=== PATIENT | male | born 1945 | race Caucasian/White ===

== ENCOUNTER 2017-05-11 05:05 | Inpatient (IN) | payer MEDICARE ==
[2017-05-11] MEDS ORDERED: SODIUM CHLORIDE 0.9% 500 ML IV STA (05:38)
[2017-05-11] MEDS ORDERED: PIPERACILLIN-TAZOBACTAM 3.375 GM in DEXTROSE/WATER 1 50ML.BAG IVPB STA (05:45)
[2017-05-11] MEDS ORDERED: SODIUM CHLORIDE 0.9% 2,000 ML IV ONE (05:46)
[2017-05-11] MEDS ORDERED: LEVOFLOXACIN 750MG-D5W PMX 750 MG in DEXTROSE/WATER 1 150ML.BAG IVPB STA (05:46)
[2017-05-11 05:47] LABS: Basophils % (A) 1 %; CH 31.4; CHCM 32.9; Eosinophils # (A) 0.1 k/uL (0-0.7); Eosinophils % (A) 1 %; HCT 42.3 % (39.0-53.0); HDW 2.31; HGB 13.5 gm/dL (13.0-17.5); Luc # (Auto) 0.12; Luc % (Auto) 2; Lymphocytes # (A) 1.1 k/uL (1.0-4.8); Lymphocytes % (A) 19 %; MCH 30.7 pg (25.0-35.0); MCV 95.8 fL (80.0-100.0); Mean Platelet Volume 6.3; Monocytes # (A) 0.3 k/uL (0-1.0); Monocytes % (A) 6 %; Neutrophils # (A) 4.2 k/uL (1.3-7.7); Neutrophils % (A) 71 %; RBC 4.41 m/uL (4.30-5.90); RDW 13.1 % (11.5-15.5); WBC 5.9 k/uL (3.8-10.6); WBC (Perox) 6.14
--- NOTE | 2017-05-11 05:48 | ED ---
Dizziness HPI - General Chief Complaint: Dizziness Stated Complaint: Dizziness Time Seen by Provider: 05/11/17 05:30 Source: patient Mode of arrival: ambulatory Limitations: physical limitation (Patient is very hard of hearing) - History of Present Illness Initial Comments: This patient is 72-year-old man who complains of feeling lightheaded and dizzy. This been coming on over the course of the night and he states that he is not able to walk due to this. Patient denies headache. Patient is not having palpitations or syncope. No chest pain. MD Complaint: dizziness, difficulty walking -: days(s) Timing: gradual onset Description: off-balance, difficulty walking History of Trauma: No Severity: moderate Worsens With: movement Associated Symptoms: denies other symptoms - Related Data Home Medications Medication Instructions Recorded Confirmed Unable To Assess [Unable to Assess] 05/11/17 05/11/17 Allergies Allergy/AdvReac Type Severity Reaction Status Date / Time No Known Allergies Allergy Verified 05/11/17 05:16 Review of Systems ROS Statement: Those systems with pertinent positive or pertinent negative responses have been documented in the HPI. ROS Other: All systems not noted in ROS Statement are negative. Limitations: ROS unobtainable due to patients medical condition (Heart of hearing) Constitutional: Reports: weakness. Denies: fever, chills Respiratory: Denies: cough, dyspnea Cardiovascular: Denies: chest pain, edema Gastrointestinal: Denies: abdominal pain, vomiting Genitourinary: Denies: dysuria, hematuria Musculoskeletal: Denies: back pain Skin: Denies: rash Neurological: Reports: weakness. Denies: headache Past Medical History Past Medical History: Hypertension History of Any Multi-Drug Resistant Organisms: None Reported Past Surgical History: No Surgical Hx Reported Past Psychological History: No Psychological Hx Reported Smoking Status: Current every day smoker Past Alcohol Use History: None Reported Past Drug Use History: None Reported General Exam Limitations: no limitations General appearance: alert, cachectic Head exam: Present: atraumatic, normocephalic Eye exam: Present: EOMI, other (Left pupil irregular). Absent: scleral icterus , conjunctival injection ENT exam: Present: mucous membranes dry Neck exam: Present: normal inspection. Absent: full ROM Respiratory exam: Present: wheezes. Absent: respiratory distress, rales, rhonchi, stridor, chest wall tenderness Cardiovascular Exam: Present: regular rate, normal rhythm, normal heart sounds. Absent: systolic murmur, diastolic murmur, rubs, gallop GI/Abdominal exam: Present: soft. Absent: distended, tenderness, guarding, rebound, mass Extremities exam: Present: normal inspection, normal capillary refill. Absent: pedal edema, calf tenderness Neurological exam: Present: alert, CN II-XII intact. Absent: motor sensory deficit Skin exam: Present: warm, dry, intact, normal color. Absent: rash Course Vital Signs 05/11/17 05/11/17 05:08 06:22 Temperature 97.1 F L Pulse Rate 91 63 Respiratory 18 16 Rate Blood Pressure 188/90 162/77 O2 Sat by Pulse 97 100 Oximetry Medical Decision Making - Lab Data Result diagrams: 05/11/17 05:21 05/11/17 05:21 Lab Results 05/11/17 05/11/17 05/11/17 Range/Units 05:21 05:21 05:21 WBC 5.9 (3.8-10.6) k/uL RBC 4.41 (4.30-5.90) m/uL Hgb 13.5 (13.0-17.5) gm/dL Hct 42.3 (39.0-53.0) % MCV 95.8 (80.0-100.0) fL MCH 30.7 (25.0-35.0) pg MCHC 32.0 (31.0-37.0) g/dL RDW 13.1 (11.5-15.5) % Plt Count 408 (150-450) k/uL Neutrophils % 71 % Lymphocytes % 19 % Monocytes % 6 % Eosinophils % 1 % Basophils % 1 % Neutrophils # 4.2 (1.3-7.7) k/uL Lymphocytes # 1.1 (1.0-4.8) k/uL Monocytes # 0.3 (0-1.0) k/uL Eosinophils # 0.1 (0-0.7) k/uL Basophils # 0.0 (0-0.2) k/uL PT 12.0 (9.0-12.0) sec INR 1.2 H (<1.2) Sodium 138 (137-145) mmol/L Potassium 4.8 (3.5-5.1) mmol/L Chloride 104 (98-107) mmol/L Carbon Dioxide 25 (22-30) mmol/L Anion Gap 9 mmol/L BUN 14 (9-20) mg/dL Creatinine 0.70 (0.66-1.25) mg/dL Est GFR (MDRD) Af Amer >60 (>60 ml/min/1.73 sqM) Est GFR (MDRD) Non-Af >60 (>60 ml/min/1.73 sqM) Glucose 89 (74-99) mg/dL Plasma Lactic Acid Warren (0.7-2.0) mmol/L Calcium 9.3 (8.4-10.2) mg/dL Total Bilirubin 0.5 (0.2-1.3) mg/dL AST 21 (17-59) U/L ALT 21 (21-72) U/L Alkaline Phosphatase 72 (38-126) U/L Troponin I (0.000-0.034) ng/mL Total Protein 6.5 (6.3-8.2) g/dL Albumin 3.2 L (3.5-5.0) g/dL Urine Color Urine Appearance (Clear) Urine pH (5.0-8.0) Ur Specific [place] (1.001-1.035) Urine Protein (Negative) Urine Glucose (UA) (Negative) Urine Ketones (Negative) Urine Blood (Negative) Urine Nitrite (Negative) Urine Bilirubin (Negative) Urine Urobilinogen (<2.0) mg/dL Ur Leukocyte Esterase (Negative) 05/11/17 05/11/17 05/11/17 Range/Units 05:21 05:47 06:50 WBC (3.8-10.6) k/uL RBC (4.30-5.90) m/uL Hgb (13.0-17.5) gm/dL Hct (39.0-53.0) % MCV (80.0-100.0) fL MCH (25.0-35.0) pg MCHC (31.0-37.0) g/dL RDW (11.5-15.5) % Plt Count (150-450) k/uL Neutrophils % % Lymphocytes % % Monocytes % % Eosinophils % % Basophils % % Neutrophils # (1.3-7.7) k/uL Lymphocytes # (1.0-4.8) k/uL Monocytes # (0-1.0) k/uL Eosinophils # (0-0.7) k/uL Basophils # (0-0.2) k/uL PT (9.0-12.0) sec INR (<1.2) Sodium (137-145) mmol/L Potassium (3.5-5.1) mmol/L Chloride (98-107) mmol/L Carbon Dioxide (22-30) mmol/L Anion Gap mmol/L BUN (9-20) mg/dL Creatinine (0.66-1.25) mg/dL Est GFR (MDRD) Af Amer (>60 ml/min/1.73 sqM) Est GFR (MDRD) Non-Af (>60 ml/min/1.73 sqM) Glucose (74-99) mg/dL Plasma Lactic Acid Warren 0.8 (0.7-2.0) mmol/L Calcium (8.4-10.2) mg/dL Total Bilirubin (0.2-1.3) mg/dL AST (17-59) U/L ALT (21-72) U/L Alkaline Phosphatase (38-126) U/L Troponin I 0.047 H* (0.000-0.034) ng/mL Total Protein (6.3-8.2) g/dL Albumin (3.5-5.0) g/dL Urine Color Yellow Urine Appearance Clear (Clear) Urine pH 5.5 (5.0-8.0) Ur Specific [place] 1.019 (1.001-1.035) Urine Protein Negative (Negative) Urine Glucose (UA) Negative (Negative) Urine Ketones Negative (Negative) Urine Blood Negative (Negative) Urine Nitrite Negative (Negative) Urine Bilirubin Negative (Negative) Urine Urobilinogen 2.0 (<2.0) mg/dL Ur Leukocyte Esterase Negative (Negative) Disposition Clinical Impression: Generalized weakness, Elevated troponin I measurement Disposition: ADMITTED IP TO THIS [facility] Condition: Poor Referrals: None,Stated [Primary Care Provider] - 1-2 days
[2017-05-11 05:56] LABS: ALT 21 U/L (21-72); AST 21 U/L (17-59); Alkaline Phosphatase 72 U/L (38-126); Anion Gap 9 mmol/L; Blood Urea Nitrogen 14 mg/dL (9-20); Calcium 9.3 mg/dL (8.4-10.2); Carbon Dioxide 25 mmol/L (22-30); Chloride 104 mmol/L (98-107); Glucose 89 mg/dL (74-99); Non-African American GFR(MDRD) >60 (>60 ml/min/1.73 sqM); Potassium 4.8 mmol/L (3.5-5.1); Sodium 138 mmol/L (137-145); Total Bilirubin 0.5 mg/dL (0.2-1.3); Total Protein 6.5 g/dL (6.3-8.2)
[2017-05-11 05:57] LABS: INR 1.2 (<1.2)
--- NOTE | 2017-05-11 06:36 | XR ---
EXAMINATION TYPE: XR chest 1V portable DATE OF EXAM: 05/11/2017 COMPARISON: Chest x-ray April 30, 2009 HISTORY: History of hypertension presents with dizziness for 3 days. TECHNIQUE: Single AP portable frontal upright view of the chest is obtained. FINDINGS: There is background of chronic emphysematous change. There is is patchy right basilar opaci ty. The left lung is clear. No pleural effusion or pneumothorax is seen bilaterally. The cardiac silh ouette size is mildly enlarged currently with atherosclerotic thoracic aorta. The osseous structure s are intact. IMPRESSION: Chronic emphysematous change and mild cardiomegaly with patchy right basilar atelectasis and/or infiltrate.
--- NOTE | 2017-05-11 06:39 | CT ---
EXAMINATION TYPE: CT brain wo con DATE OF EXAM: 05/11/2017 HISTORY: Dizziness for 3 days. History of CVA/TIA. CT DLP: 1036 mGycm. Automated Exposure Control for Dose Reduction was Utilized. TECHNIQUE: CT scan of the head is performed without contrast. COMPARISON: Prior CT scan of brain April 30, 2009 FINDINGS: There is no acute intracranial hemorrhage or midline shift identified. There is diffuse v entricular and sulcal prominence consistent with diffuse age-related cerebral atrophy. There is low- attenuation in the periventricular white matter consistent with chronic small vessel ischemic change. There is persistent near complete opacification of left maxillary sinus with sclerotic thickened wal ls consistent with chronic sinus disease at this level. There is mild mucosal thickening involving le ft-sided ethmoid sinuses and inferior left frontal sinus. There is linear density superior-medial a spect of left globe redemonstrated on axial image 21, possible calcification versus foreign body unch anged from prior. Mastoid air cells show no suspicious opacification. IMPRESSION: No acute intracranial hemorrhage or midline shift. There is fairly moderate diffuse age -related cerebral atrophy and chronic small vessel ischemic change identified. Chronic paranasal sinu s disease is redemonstrated. No significant change from prior study noted.
[2017-05-11 07:01] LABS: Appearance,Urine Clear (Clear); Bilirubin,Urine Negative (Negative); Glucose,Urine (UA) Negative (Negative); Ketones,Urine Negative (Negative); Leukocyte Esterase,Urine Negative (Negative); Nitrite,Urine Negative (Negative); PH, Urine 5.5 (5.0-8.0); Protein,Urine Negative (Negative); Specific Gravity,Urine 1.019 (1.001-1.035); UA Billing (MACRO vs. MICRO) CHEM
[2017-05-11] MEDS ORDERED: NITROGLYCERIN SL TABS 0.4 MG TAB SUBLINGUAL PRN (07:03)
[2017-05-11] MEDS ORDERED: ENOXAPARIN 60 MG/0.6 ML SYRINGE SQ STA (07:03)
--- NOTE | 2017-05-11 09:05 | P.CRDCN ---
History of Present Illness Consult date: 05/11/17 Requesting physician: Michael Timmons Reason for Consult (text): Abnormal troponin Chief complaint: Dizziness and weakness History of present illness: This is a 72-year-old gentleman with history of hypertension, prior TIA and syncopal episode approximately 5 years ago, nicotine dependence, patient states that he smokes up to 3 packs of cigarettes per day, he also drinks at least 6 beers a day. He doesn't follow regularly with a doctor. Patient presented to the hospital with symptoms of dizziness and lightheadedness and inability to walk. He states that he can stand up okay, but when he needs to walk he has a hard time getting his legs to move. At those times he also complains of feeling significantly dizzy. He denies having any chest discomfort, no palpitations, no difficulty in breathing. Cardiology consultation was requested because of abnormal troponin. EKG performed on arrival shows junctional rhythm with nonspecific ST-T wave changes. CAT scan of the brain did not reveal any acute intracranial hemorrhage or midline shift. Chronic small vessel ischemic change identified. Chest x-ray reveals chronic emphysema changes and mild cardiomegaly. CBC normal. Potassium 4.8, BUN 14, creatinine 0.7. Troponin 0.047. Blood pressure on arrival 188/90 with a heart rate in the 90s, 97% on room air. At the time of my examination this morning, patient is lying flat in bed, denies any chest discomfort, no dizziness or lightheadedness. Past Medical History Past Medical History: Hypertension History of Any Multi-Drug Resistant Organisms: None Reported Past Surgical History: No Surgical Hx Reported Past Psychological History: No Psychological Hx Reported Smoking Status: Current every day smoker Past Alcohol Use History: None Reported Past Drug Use History: None Reported Medications and Allergies Home Medications Medication Instructions Recorded Confirmed Type Blood Pressure Med (Unknown) 1 tab PO DIRECTED 05/11/17 History Allergies Allergy/AdvReac Type Severity Reaction Status Date / Time No Known Allergies Allergy Verified 05/11/17 07:49 Physical Exam Vitals: Vital Signs Temp Pulse Resp BP Pulse Ox 05/11/17 07:29 97.6 F 61 20 153/74 100 05/11/17 06:22 63 16 162/77 100 05/11/17 05:08 97.1 F L 91 18 188/90 97 Intake and Output 11/05/11/17 05/11/17 22:59 06:59 14:59 Other: Weight 63.503 kg 53.1 kg Patient Weight 05/12/17 06:59 Weight 53.1 kg PHYSICAL EXAMINATION: HEENT: Head is atraumatic, normocephalic. Pupils equal, round. Neck is supple. There is no elevated jugular venous pressure. HEART EXAMINATION: Heart S1, S2 normal. No murmur or gallop heard. CHEST EXAMINATION: Lungs are clear to auscultation and precussion. No chest wall tenderness is noted on palpation or with deep breathing. ABDOMEN: Soft, nontender. Bowel sounds are heard. No organomegaly noted. EXTREMITIES: 2+ peripheral pulses with no evidence of peripheral edema and no calf tenderness noted. NEUROLOGIC patient is awake, alert and oriented -3. . Results 05/11/17 05:21 05/11/17 05:21 Cardiac Enzymes 05/11/17 05/11/17 Range/Units 05:21 05:21 AST 21 (17-59) U/L Troponin I 0.047 H* (0.000-0.034) ng/mL Coagulation 05/11/17 Range/Units 05:21 PT 12.0 (9.0-12.0) sec CBC 05/11/17 Range/Units 05:21 WBC 5.9 (3.8-10.6) k/uL RBC 4.41 (4.30-5.90) m/uL Hgb 13.5 (13.0-17.5) gm/dL Hct 42.3 (39.0-53.0) % Plt Count 408 (150-450) k/uL Comprehensive Metabolic Panel 05/11/17 Range/Units 05:21 Sodium 138 (137-145) mmol/L Potassium 4.8 (3.5-5.1) mmol/L Chloride 104 (98-107) mmol/L Carbon Dioxide 25 (22-30) mmol/L BUN 14 (9-20) mg/dL Creatinine 0.70 (0.66-1.25) mg/dL Glucose 89 (74-99) mg/dL Calcium 9.3 (8.4-10.2) mg/dL AST 21 (17-59) U/L ALT 21 (21-72) U/L Alkaline Phosphatase 72 (38-126) U/L Total Protein 6.5 (6.3-8.2) g/dL Albumin 3.2 L (3.5-5.0) g/dL Current Medications Generic Name Dose Route Start Last Admin Trade Name Pura PRN Reason Stop Dose Admin Aspirin 325 mg 05/12/17 09:00 Aspirin PO DAILY GURWINDER Nitroglycerin 0.4 mg 05/11/17 07:03 Nitrostat SUBLINGUAL Q5M PRN Chest Pain Intake and Output 05/10/17 05/11/17 05/11/17 22:59 06:59 14:59 Other: Weight 63.503 kg 53.1 kg Patient Weight 05/12/17 06:59 Weight 53.1 kg 05/11/17 05:21 05/11/17 05:21 EKG Interpretations (text) EKG shows a junctional rhythm with nonspecific ST-T wave changes Assessment and Plan Plan: Assessment and plan #1 symptoms of dizziness and lightheadedness of bilateral leg weakness. No syncopal episode. #2 abnormal troponin, patient denies having any chest discomfort, no palpitations, no shortness of breath. EKG shows a junctional rhythm with nonspecific ST-T wave changes. #3 hypertension #4 prior TIA and questionable syncopal episode approximately 5 years ago #5 nicotine dependence, patient's smokes 3 packs of cigarettes per day #6 EtOH abuse, patient rates at least 6 beers a day. Plan We will obtain 2 subsequent troponins. Echocardiogram with Doppler study were also be requested. We will check orthostatic blood pressure and heart rate every shift. Further recommendations to follow. DNP note has been reviewed, I agree with a documented findings and plan of care. Patient was seen and examined.
[2017-05-11] MEDS ORDERED: LORazepam 2 MG/ML INJ IV PRN ×3 (09:24)
[2017-05-11] MEDS ORDERED: ONDANSETRON 4 MG/2 ML VIAL IVP PRN (09:25)
[2017-05-11] MEDS ORDERED: DOCUSATE 100 MG CAP PO PRN (09:25)
[2017-05-11] MEDS ORDERED: CALCIUM CARBONATE 500 MG CHEWABLE PO PRN (09:25)
[2017-05-11] MEDS ORDERED: MELATONIN 5 MG TABLET PO PRN (09:25)
[2017-05-11] MEDS ORDERED: hydrALAZINE HCL 20 MG/ML 1 ML VIAL IM PRN (09:25)
--- NOTE | 2017-05-11 09:28 | P.HPIM ---
History of Present Illness H&P Date: 05/11/17 Chief Complaint: dizziness Patient is a 72-year-old male with a past medical history of hypertension, he has not seen a physician in 2 years, tobacco abuse, and alcohol abuse who presented to the ER with complaints of disequilibrium and inability to walk. In the ER the patient underwent an extensive evaluation. His initial vital signs showed him to be quite hypertensive with a blood pressure 180/90. His initial laboratory analysis showed a slightly elevated troponin 0.047, INR 1.2, and albumin of 3.2. Chest x-ray showed no acute process and CT of the brain demonstrated diffuse age-related cerebral atrophy with chronic small vessel ischemic changes and chronic paranasal sinus disease. Seen and examined at bedside. He states that he first noticed some disequilibrium approximately 3 days ago associated with lower extremity weakness. He states that has been getting worse over time. He states that when he stands he is dizzy and unable to move his legs. He states that his legs are not weak. He denies any feelings as though he is going to faint or pass out, he denies the room spinning. He denies any shortness of breath. He states he has felt like he has had the flu since Wednesday with nausea and runny diarrhea. He states he went to the bathroom multiple times. He denies any overt fevers or chills. He does report decreased appetite. He denies any recent weight loss. He states that he had a headache on Wednesday but it resolved spontaneously and has not recurred. He states that last night he took 3 of his blood pressure pills after not having taken them for quite some time. He reports doing this because he felt as though his blood pressure was "high". He has no other complaints currently. He admits to drinking 6 beers daily and his last drink was on Wednesday. He states that he typically will go 1-2 days without drinking and does not develop symptoms of withdrawal. He states that he was here in 2009 with a possible stroke. Daughter relates that they felt it was likely related to his drinking and not truly a stroke. She states that her daughter has reported that he has been consuming more liquor recently, patient denies this. Review of Systems General: no fever/chills, no rigors, no weight loss/weight gain, + unusual fatigue, + Decreased appetite. Eyes: no noticable visual changes, no loss of vision ENT: no rhinorrhea, no congestion, no sore throat Cardiovascular: no chest pain, no palpitations, no preyncope/syncope, no edema Pulmonary: no shortness of breath, no wheezing, no cough Abdominal: no abdominal pain, no constipation, + diarrhea, no vomiting, + nausea Genitourinary: no dysuria, no urinary frequency, no unusual discharge/odor Neuro: + disequilibrium no unusual paresthesias, no unusual paresis/paralysis, + headache Dermatologic: no unusual rashes, no unusual lesions, no unusual changes in nails Hematologic: no hemoptysis, no hematuria, no melena/hematochezia Psychiatric: no changes in mood or behaviors, no changes in sleep pattern Past Medical History Past Medical History: Hypertension Additional Past Medical History / Comment(s): Pt is a somewhat poor historian. HTN per daughter, but does not take his medications. In 2008 pt admitted to [facility] with severe sinusitis/mastoiditis, syncope, hyponatremia, elevated blood sugar and vertigo. Pt states the only medical hx he is aware of was a syncopal event. History of Any Multi-Drug Resistant Organisms: None Reported Past Surgical History: Hernia Repair Additional Past Surgical History / Comment(s): R inguinal hernia repair. Past Anesthesia/Blood Transfusion Reactions: No Reported Reaction Past Psychological History: No Psychological Hx Reported Smoking Status: Current every day smoker Past Alcohol Use History: Daily (6 beers daily, last drink Tuesday 05/08), Heavy Past Drug Use History: None Reported - Past Family History Father Family Medical History: No Reported History Mother Family Medical History: Diabetes Mellitus Additional Family Medical History / Comment(s): Brain Tumor Medications and Allergies Home Medications Medication Instructions Recorded Confirmed Type Blood Pressure Med (Unknown) 1 tab PO DIRECTED 05/11/17 History Allergies Allergy/AdvReac Type Severity Reaction Status Date / Time No Known Allergies Allergy Verified 05/11/17 07:49 Physical Exam Osteopathic Statement: *. No significant issues noted on an osteopathic structural exam other than those noted in the History and Physical/Consult. Vitals: Vital Signs Temp Pulse Pulse Resp BP BP Pulse Ox 05/11/17 08:21 97.8 F 65 18 164/80 99 05/11/17 07:29 97.6 F 61 20 153/74 100 05/11/17 06:22 63 16 162/77 100 05/11/17 05:08 97.1 F L 91 18 188/90 97 Intake and Output 05/10/17 05/11/17 05/11/17 22:59 06:59 14:59 Other: Weight 63.503 kg 53.1 kg Patient Weight 05/12/17 06:59 Weight 53.1 kg General: non toxic, no distress, appears older than stated age, Cachetic, malnourished appearing Derm: no unusual rashes/lesions all areas of ecchymoses, warm, dry Head: atraumatic, normocephalic, symmetric Eyes: EOMI, no lid lag, anicteric sclera, pupils equal round reactive to light ENT: Nose and ears atraumatic, no thrush, + pharyngeal erythema Neck: No thyromegaly, no cervical lymphadenopathy, trachea midline, supple Mouth: no lip lesion, mucus membranes dry Cardiovascular: S1S2 reg, no murmur, positive posterior tibial pulse bilateral, no edema, capillary refill less than 2 seconds Lungs: CTA bilateral, no rhonchi, no rales , no accessory muscle use Abdominal: soft, nontender to palpation, no guarding, no appreciable organomegaly, normal bowel sounds Ext: no gross muscle atrophy, muscle strength 4 out of 5 in all 4 extremities grossly, no contractures, Neuro: CN II-XI grossly intact, light touch intact all 4 extremities, finger to nose, poor [id number] Psych: Alert, oriented, appropriate affect Results CBC & Chem 7: 05/11/17 05:21 05/11/17 05:21 Labs: Abnormal Lab Results - Last 24 Hours (Table) 05/11/17 05/11/17 05/11/17 Range/Units 05:21 05:21 05:21 INR 1.2 H (<1.2) Troponin I 0.047 H* (0.000-0.034) ng/mL Albumin 3.2 L (3.5-5.0) g/dL Thrombosis Risk Factor Assmnt - DVT/VTE Prophylaxis DVT/VTE Prophylaxis: Pharmacologic Prophylaxis ordered, Mechanical Prophylaxis ordered - Choose All That Apply Any of the Below Risk Factors Present?: Yes Other Risk Factors: Yes Each Risk Factor Represents 2 Points: Age 61-74 years Other congenital or acquired thrombophilia - If yes, enter type in comment: No Thrombosis Risk Factor Assessment Total Risk Factor Score: 2 Thrombosis Risk Factor Assessment Level: Low Risk Assessment and Plan Assessment: Disequilibrium suspect Wernicke Encephalopathy vs stroke - high dose thiamine supplementation, MVI, folic acid -PT/OT/ST evaluation - ASA, statin - Neuro checks - MRI - Neuro consult - fall precuations - supportive care - carotid doppler, echo - check lipid profile - check B 12 level Elevated troponin, suspect due to HTN - Cardiology recommendations appreciated - Echo - serial troponins - ASA - full dose lovenox - check Lipid profile - statin Alcohol abuse with impending delirium tremens - thiamine, folate supplementation - CIWA protocol Hypertensive urgency - improved - norvasc and cozaar added by cardio - follow BP - prn hydralazine Tobacco abuse - cessation recommended - avoid nicotine replacement with increased troponin if able. Mild protein calorie malnutrition with cachexia - MVI - Consult dietitian Surrogate decision-maker: Daughter Antonia Guzman [phone] CODE STATUS:Full DVT prophylaxis: on dull dose lovenox Discussed with: Patient, family, cardio, nursing Anticipated discharge: 24-[address]: home vs snf A total of 65 minutes was spent on the care of this complex patient more than 50 % of the time was spent in counseling and care coordination.
--- NOTE | 2017-05-11 11:57 | ECHOF ---
Referral Reason:abn trop MEASUREMENTS -------- HEIGHT: 182.9 cm WEIGHT: 53.1 kg BP: 153/74 RVIDd: 2.6 cm (< 3.3) IVSd: 0.8 cm (0.6 - 1.1) LVIDd: 5.0 cm (3.9 - 5.3) LVPWd: 0.6 cm (0.6 - 1.1) IVSs: 1.1 cm LVIDs: 3.5 cm LVPWs: 1.2 cm LA Diam: 2.8 cm (2.7 - 3.8) LAESV Index (A-L): 15.70 ml/m Ao Diam: 3.1 cm (2.0 - 3.7) AV Cusp: 2.1 cm (1.5 - 2.6) LA Diam: 3.2 cm (2.7 - 3.8) MV EXCURSION: 21.371 mm (> 18.000) MV EF SLOPE: 103 mm/s (70 - 150) EPSS: 0.6 cm MV E Michael: 0.56 m/s MV DecT: 224 ms MV A Michael: 0.59 m/s MV E/A Ratio: 0.95 RAP: 5.00 mmHg RVSP: 8.86 mmHg FINDINGS -------- Sinus rhythm. This was a technically adequate study. Pt. has a pectus chest. LV size, wall thickness and systolic function are normal, with an EF greater than 55%. The left zach tricular size is normal. The right ventricle is normal in size. Normal LA size by volume 22+/-6 ml/m2. The right atrial size is normal. The aortic valve was not well visualized. Mild mitral regurgitation is present. No regurgitation noted There is no evidence of pulmonary hypertension. The right ventricular syst olic pressure, as measured by Doppler, is 8.86mmHg. The pulmonic valve was not well visualized. The aortic root size is normal. There is no pericardial effusion. CONCLUSIONS -------- 1. Pt. has a pectus chest. 2. LV size, wall thickness and systolic function are normal, with an EF greater than 55%. 3. The left ventricular size is normal. 4. The aortic valve was not well visualized. 5. Mild mitral regurgitation is present. 6. No regurgitation noted 7. There is no evidence of pulmonary hypertension. 8. The right ventricular systolic pressure, as measured by Doppler, is 8.86mmHg. 9. The pulmonic valve was not well visualized. 10. The aortic root size is normal. 11. There is no pericardial effusion. HEMOTHERAPIST: Soledad Herman RDCS
[2017-05-11 12:04] LABS: Creatine Kinase MB 0.6 ng/mL (0.0-2.4)
[2017-05-11 12:14] LABS: Troponin I 0.043 ng/mL (0.000-0.034)
[2017-05-11] MEDS: amLODIPine 5 MG TAB PO SCH (12:17)
[2017-05-11] MEDS: FOLIC ACID 1 MG TAB PO SCH (12:18)
[2017-05-11] MEDS: MULTIVITAMINS, THERA 1 EACH TAB PO SCH (12:18)
[2017-05-11] MEDS: THIAMINE 100 MG/ML 2 ML VIAL IVP SCH ×2 (12:19→20:38)
--- NOTE | 2017-05-11 17:38 | MR ---
EXAMINATION TYPE: MR brain wo/w con DATE OF EXAM: 05/11/2017 COMPARISON: NONE HISTORY: Dizziness, weakness TECHNIQUE: Multiplanar, multisequence images of the brain and brainstem is performed without and with IV contras t, utilizing 5 mL intravenous Gadavist . FINDINGS: There is cerebral cortical atrophy. There is no mass effect nor midline shift. There is no sign of intracranial hemorrhage. There is patchy abnormal increased signal in the periventricular whi te matter on the T2 and FLAIR images. There is conglomeration of increased signal in the centrum semi ovale bilaterally. There is mild increased signal around the occipital horns of the lateral ventricle s as well. There is no evidence of cortical infarct. Brainstem is intact. Sella turcica appears normal. There is mild thinning of the corpus callosum. I s ee no pathologic enhancement. There is fluid signal in the left maxillary sinus. There is some increa sed signal in the right mastoid sinus. IMPRESSION: Cerebral atrophy and white matter signal changes probably be related to chronic small ves hannah ischemia. Demyelinating disease is in the differential diagnosis. No evidence of cortical infarct . Left maxillary and right mastoid sinusitis.
--- NOTE | 2017-05-11 17:47 | US ---
EXAMINATION TYPE: US carotid duplex BILAT DATE OF EXAM: 05/11/2017 COMPARISON: NONE CLINICAL HISTORY: Stenosis. EXAM MEASUREMENTS: RIGHT: Peak Systolic Velocity (PSV) cm/sec ----- Right CCA: 65.3 ----- Right ICA: 49.9 ----- Right ECA: 52.0 ICA/CCA ratio: 0.8 RIGHT: End Diastole cm/sec ----- Right CCA: 8.6 ----- Right ICA: 12.6 ----- Right ECA: 5.8 LEFT: Peak Systolic Velocity (PSV) cm/sec ----- Left CCA: 78.4 ----- Left ICA: 56.4 ----- Left ECA: 79.4 ICA/CCA ratio: 0.7 LEFT: End Diastole cm/sec ----- Left CCA: 13.7 ----- Left ICA: 14.1 ----- Left ECA: 0.0 VERTEBRALS (direction of flow): Right Vertebral: Antegrade Left Vertebral: Antegrade Rhythm: Normal Severe plaque, no significant stenosis seen. Grayscale, color Doppler, spectral Doppler imaging performed of the carotid arteries. Atheromatous ch anges in the carotid bulbs show shadowing compatible with calcifications. IMPRESSION: No hemodynamic significant stenosis of the proximal internal carotid arteries Doppler cr iteria, an indirect measurement of carotid stenosis
[2017-05-11 18:28] LABS: Creatine Kinase MB 0.5 ng/mL (0.0-2.4); Troponin I 0.03 ng/mL (0.000-0.034)
[2017-05-11] MEDS: ATORVASTATIN 20 MG TAB PO SCH (20:37)
[2017-05-11] MEDS: FAMOTIDINE 20 MG TAB PO SCH (20:37)
[2017-05-11] MEDS: ENOXAPARIN 60 MG/0.6 ML SYRINGE SQ SCH (20:38)
[2017-05-12 06:09] LABS: CH 31.3; CHCM 32.2; HCT 41.5 % (39.0-53.0); HDW 2.25; HGB 12.9 gm/dL (13.0-17.5); MCH 30.4 pg (25.0-35.0); MCHC 31.1 g/dL (31.0-37.0); MCV 97.7 fL (80.0-100.0); Mean Platelet Volume 7.1; RBC 4.25 m/uL (4.30-5.90); RDW 12.9 % (11.5-15.5); WBC 6.5 k/uL (3.8-10.6)
[2017-05-12 06:19] LABS: ALT 22 U/L (21-72); AST 21 U/L (17-59); Alkaline Phosphatase 72 U/L (38-126); Anion Gap 8 mmol/L; Blood Urea Nitrogen 15 mg/dL (9-20); Calcium 9.6 mg/dL (8.4-10.2); Carbon Dioxide 27 mmol/L (22-30); Chloride 102 mmol/L (98-107); Cholesterol 122 mg/dL (<200); Glucose 73 mg/dL (74-99); HDL Cholesterol 51 mg/dL (40-60); Non-African American GFR(MDRD) >60 (>60 ml/min/1.73 sqM); Potassium 4.5 mmol/L (3.5-5.1); Sodium 137 mmol/L (137-145); Total Bilirubin 0.5 mg/dL (0.2-1.3); Total Protein 6.8 g/dL (6.3-8.2)
--- NOTE | 2017-05-12 08:01 | P.PN ---
Subjective Progress Note Date: 05/12/17 Principal diagnosis: weakness and dizziness This 72-year-old male with history of alcohol abuse was admitted with symptoms of weakness. Patient says that symptoms had started on Wednesday. Most prominent for symptom for him is dizziness and instability when he stands up. Denies any headaches. Denies any focal weakness. He is on steady when he stands up. Today patient is status he still feels dizzy when he sits up in bed. She has to lay down and denies any chest pains or palpitations no headaches Objective - Vital Signs Vital signs: Vital Signs Temp 98.8 F 05/12/17 06:35 Pulse 65 05/12/17 06:35 Resp 17 05/12/17 06:35 BP 140/65 05/12/17 06:35 Pulse Ox 95 05/12/17 06:35 Intake & Output 05/11/17 05/12/17 05/12/17 18:59 06:59 18:59 Intake Total 1200 200 Output Total 350 1200 200 Balance 850 -1000 -200 Weight 53.1 kg 53.6 kg Intake: Oral 1200 200 Output: Urine 350 1200 200 Other: Voiding Method Urinal # Voids 1 1 1 - Constitutional General appearance: Present: disheveled, no acute distress - EENT Eyes: Present: EOMI, PERRLA - Respiratory Respiratory: bilateral: CTA, negative: rales, wheezing - Cardiovascular Rhythm: regular Heart sounds: normal: S1, S2 - Gastrointestinal General gastrointestinal: Present: normal bowel sounds, soft. Absent: tenderness - Labs CBC & Chem 7: 05/12/17 05:23 05/12/17 05:23 Labs: Abnormal Lab Results - Last 24 Hours (Table) 05/11/17 05/11/17 05/12/17 Range/Units 11: 17:33 05:23 RBC (4.30-5.90) m/uL Hgb (13.0-17.5) gm/dL Glucose 73 L (74-99) mg/dL Total Creatine Kinase 33 L 32 L (55-170) U/L Troponin I 0.043 H* (0.000-0.034) ng/mL Albumin 3.2 L (3.5-5.0) g/dL 05/12/17 Range/Units 05:23 RBC 4.25 L (4.30-5.90) m/uL Hgb 12.9 L (13.0-17.5) gm/dL Glucose (74-99) mg/dL Total Creatine Kinase (55-170) U/L Troponin I (0.000-0.034) ng/mL Albumin (3.5-5.0) g/dL Assessment and Plan (1) Gait abnormality Narrative/Plan: will order MRI neuro consult Current Visit: Yes Status: Acute Code(s): R26.9 - UNSPECIFIED ABNORMALITIES OF GAIT AND MOBILITY SNOMED Code(s): 72030326 (2) Dizziness Narrative/Plan: will order MRI neuro to eval Current Visit: Yes Status: Acute Code(s): R42 - DIZZINESS AND GIDDINESS SNOMED Code(s): 857082519 (3) Alcohol abuse Narrative/Plan: watch for dt symptoms Current Visit: Yes Status: Acute Code(s): F10.10 - ALCOHOL ABUSE, UNCOMPLICATED SNOMED Code(s): 53551517 (4) Hypertensive urgency Narrative/Plan: on losartan better controlled Current Visit: Yes Status: Acute Code(s): I16.0 - HYPERTENSIVE URGENCY SNOMED Code(s): 603228639 (5) Tobacco abuse Current Visit: Yes Status: Acute Code(s): Z72.0 - TOBACCO USE SNOMED Code( s): 815681166 (6) Protein calorie malnutrition Current Visit: Yes Status: Acute Code(s): E46 - UNSPECIFIED PROTEIN-CALORIE MALNUTRITION SNOMED Code(s): 706879297 (7) Elevated troponin I measurement Narrative/Plan: echo pending cardiology following Current Visit: Yes Status: Acute Code(s): R74.8 - ABNORMAL LEVELS OF OTHER SERUM ENZYMES SNOMED Code(s): 655007697
[2017-05-12] MEDS: FOLIC ACID 1 MG TAB PO SCH (08:14)
[2017-05-12] MEDS: FAMOTIDINE 20 MG TAB PO SCH ×2 (08:14→20:03)
[2017-05-12] MEDS: ASPIRIN 81 MG PO SCH (08:14)
[2017-05-12] MEDS: amLODIPine 5 MG TAB PO SCH (08:14)
[2017-05-12] MEDS: MULTIVITAMINS, THERA 1 EACH TAB PO SCH (08:15)
[2017-05-12] MEDS: THIAMINE 100 MG/ML 2 ML VIAL IVP SCH ×2 (08:16→20:03)
[2017-05-12] MEDS: ENOXAPARIN 60 MG/0.6 ML SYRINGE SQ SCH ×2 (08:16→20:04)
[2017-05-12] MEDS ORDERED: ASPIRIN 325 MG TAB PO SCH (09:00)
[2017-05-12] MEDS ORDERED: LOSARTAN 25 MG TAB PO SCH (09:00)
--- NOTE | 2017-05-12 11:03 | P.PN ---
Subjective Progress Note Date: 05/12/17 Principal diagnosis: Dizziness and weakness This is a 72-year-old gentleman with history of hypertension, prior TIA and syncopal episode approximately 5 years ago, nicotine dependence, patient states that he smokes up to 3 packs of cigarettes per day, he also drinks at least 6 beers a day. He doesn't follow regularly with a doctor. Patient presented to the hospital with symptoms of dizziness and lightheadedness and inability to walk. He states that he can stand up okay, but when he needs to walk he has a hard time getting his legs to move. At those times he also complains of feeling significantly dizzy. He denies having any chest discomfort, no palpitations, no difficulty in breathing. Cardiology consultation was requested because of abnormal troponin. EKG performed on arrival shows junctional rhythm with nonspecific ST-T wave changes. CAT scan of the brain did not reveal any acute intracranial hemorrhage or midline shift. Chronic small vessel ischemic change identified. Chest x-ray reveals chronic emphysema changes and mild cardiomegaly. CBC normal. Potassium 4.8, BUN 14, creatinine 0.7. Troponin 0.047. Blood pressure on arrival 188/90 with a heart rate in the 90s, 97% on room air. At the time of my examination this morning, patient is lying flat in bed, denies any chest discomfort, no dizziness or lightheadedness. 05/12/2017 seen and examined this morning, denies any dizziness or lightheadedness today. Echocardiogram with Doppler study was performed which revealed an ejection fraction of greater than 55%. Carotid Doppler study negative for any significant stenosis. Blood pressure 140/60 with heart rate in the 60s. We will discontinue the Cozaar and add a beta lori 12-1/2 mg by mouth twice a day, we also recommend a nutrition consult for the patient. Objective - Vital Signs Vital signs: Vital Signs Temp 97.7 F 05/12/17 08:20 Pulse 80 05/12/17 08:20 Resp 17 05/12/17 08:20 BP 112/53 05/12/17 08:20 Pulse Ox 97 05/12/17 08:20 Intake & Output 05/11/17 05/12/17 05/12/17 18:59 06:59 18:59 Intake Total 1200 200 240 Output Total 350 1200 200 Balance 850 -1000 40 Weight 53.1 kg 53.6 kg Intake: Oral 1200 200 240 Output: Urine 350 1200 200 Other: Voiding Method Urinal Urinal # Voids 1 1 1 - Exam PHYSICAL EXAMINATION: HEENT: Head is atraumatic, normocephalic. Pupils equal, round. Neck is supple. There is no elevated jugular venous pressure. HEART EXAMINATION: Heart S1, S2 normal. No murmur or gallop heard. CHEST EXAMINATION: Lungs are clear to auscultation and precussion. No chest wall tenderness is noted on palpation or with deep breathing. ABDOMEN: Soft, nontender. Bowel sounds are heard. No organomegaly noted. EXTREMITIES: 2+ peripheral pulses with no evidence of peripheral edema and no calf tenderness noted. NEUROLOGIC patient is awake, alert and oriented -3. . - Labs CBC & Chem 7: 05/12/17 05:23 05/12/17 05:23 Labs: Abnormal Lab Results - Last 24 Hours (Table) 05/11/17 05/11/17 05/12/17 Range/Units 11:09 17:33 05:23 RBC (4.30-5.90) m/uL Hgb (13.0-17.5) gm/dL Glucose 73 L (74-99) mg/dL Total Creatine Kinase 33 L 32 L (55-170) U/L Troponin I 0.043 H* (0.000-0.034) ng/mL Albumin 3.2 L (3.5-5.0) g/dL 05/12/17 Range/Units 05:23 RBC 4.25 L (4.30-5.90) m/uL Hgb 12.9 L (13.0-17.5) gm/dL Glucose (74-99) mg/dL Total Creatine Kinase (55-170) U/L Troponin I (0.000-0.034) ng/mL Albumin (3.5-5.0) g/dL Assessment and Plan Plan: Assessment and plan #1 symptoms of dizziness and lightheadedness of bilateral leg weakness. No syncopal episode. #2 abnormal troponin, patient denies having any chest discomfort, no palpitations, no shortness of breath. EKG shows a junctional rhythm with nonspecific ST-T wave changes. #3 hypertension #4 prior TIA and questionable syncopal episode approximately 5 years ago #5 nicotine dependence, patient's smokes 3 packs of cigarettes per day #6 EtOH abuse, patient rates at least 6 beers a day. Plan Cardiac gram with Doppler study was performed which revealed a normal left ventricular systolic function. No orthostasis was documented. No significant bradycardia or tachyarrhythmias on the monitor. We will discontinue the Cozaar and start the patient on Lopressor 12/2 mg daily. From cardiology's perspective he may be able to be discharged home and follow-up with his primary care doctor as an outpatient. DNP note has been reviewed, I agree with a documented findings and plan of care. Patient was seen and examined.
[2017-05-12] MEDS: METOPROLOL TARTRATE 12.5 MG TAB PO SCH (12:04)
[2017-05-12] MEDS: ATORVASTATIN 20 MG TAB PO SCH (20:04)
--- NOTE | 2017-05-12 22:21 | P.CNNES ---
History of Present Illness Consult date: 05/12/17 Reason for Consult: Patient being evaluated for dizziness and gait disorder. History of Present Illness: This patient is a 72-year-old right-handed white male was brought into the emergency room on 05/11/2017 for evaluation of dizziness and generalized weakness. Patient was having great difficulty walking and standing up at home. Currently he states the symptoms began suddenly on Wednesday of this past week. He was unable to walk due to the symptoms. He complained of a true dizziness in which he felt the room was spinning. He states that he was having difficulty getting his legs to move. He was initially evaluated in the ER and had a computed tomography scan of the brain which failed to reveal any evidence of acute intracranial hemorrhage or stroke. He was subtotally admitted to the hospital. He underwent an MRI of the brain on 05/11/2017 which revealed cerebral atrophy and chronic white matter ischemic changes. Radiologist reported no evidence of acute cortical infarct. The patient states that he is still feeling weak and still complains of mild dizziness. He is a very poor historian and is unable to give an accurate history of his current condition. He is also very hard of hearing. He states that he has no previous history of stroke. Patient is now being evaluated for abnormal troponin levels. Cardiology has been consulted. He has a long-standing history of severe alcohol abuse. He was started on a CIWA protocol on initial evaluation and admission to the hospital given his chronic alcohol is him. 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 He states he has not had any recent falls but does notice significant weakness. Patient should be counseled on alcohol rehabilitation. He is a very poor historian and MRI of the brain does reveal evidence of moderate to severe cortical ischemia. We did review the actual MRI films today and there does appear to be a acute left pontine infarct. We will collaborate this tomorrow with radiology to reevaluate this diffusion weighted imaging study of the brain. At this time the patient's neurological findings also suggest possibility of brainstem stroke. 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 This appears to be sudden in onset likely occurring this past Wednesday. We have recommended the patient undergo a complete stroke evaluation. He should be maintained on 1 aspirin daily for secondary stroke prevention. Would recommend reevaluation by physical therapy for possible need for inpatient rehab. This patient also has evidence suggesting possibility of peripheral neuropathy secondary to alcohol abuse in the lower extremities. This can be further evaluated in the outpatient neurology clinic within EMG study. His overall prognosis at this time remains very guarded. Neurology is now been consulted for further evaluation and recommendations. Review of Systems Constitutional: Denies chills, Denies fever Eyes: denies blurred vision, denies pain Ears, nose, mouth and throat: Denies headache, Denies sore throat Cardiovascular: Denies chest pain, Denies shortness of breath Respiratory: Denies cough Gastrointestinal: Denies abdominal pain, Denies diarrhea, Denies nausea, Denies vomiting Musculoskeletal: Denies myalgias Integumentary: Denies pruritus, Denies rash Neurological: Reports change in mentation, Reports confusion, Reports double vision, Reports lack of coordination, Reports paresthesias, Reports visual changes (There is a left medial rectus weakness on eye exam.), Denies numbness, Denies weakness Psychiatric: Denies anxiety, Denies depression Endocrine: Denies fatigue, Denies weight change Past Medical History Past Medical History: Hypertension Additional Past Medical History / Comment(s): Pt is a somewhat poor historian. HTN per daughter, but does not take his medications. In 2008 pt admitted to [facility] with severe sinusitis/mastoiditis, syncope, hyponatremia, elevated blood sugar and vertigo. Pt states the only medical hx he is aware of was a syncopal event. History of Any Multi-Drug Resistant Organisms: None Reported Past Surgical History: Hernia Repair Additional Past Surgical History / Comment(s): R inguinal hernia repair. Past Anesthesia/Blood Transfusion Reactions: No Reported Reaction Past Psychological History: No Psychological Hx Reported Smoking Status: Current every day smoker Past Alcohol Use History: Daily (6 beers daily, last drink Tuesday 05/08), Heavy Past Drug Use History: None Reported - Past Family History Father Family Medical History: No Reported History Mother Family Medical History: Diabetes Mellitus Additional Family Medical History / Comment(s): Brain Tumor Medications and Allergies Home Medications Medication Instructions Recorded Confirmed Type Blood Pressure Med (Unknown) 1 tab PO DIRECTED 05/11/17 History Allergies Allergy/AdvReac Type Severity Reaction Status Date / Time No Known Allergies Allergy Verified 05/11/17 07:49 Physical Examination - Vital Signs Vital Signs: Vital Signs Temp Pulse Pulse Resp BP BP BP 05/12/17 16:37 97.7 F 62 16 107/65 11/15/17 16:00 80 71 17 05/12/17 11:42 97.5 F L 80 71 17 128/61 05/12/17 08:20 97.7 F 80 71 16 112/53 05/12/17 06:35 98.8 F 65 17 140/65 05/12/17 06:34 05/12/17 04:00 98.7 F 71 18 143/79 134/72 150/74 05/12/17 03:29 98.6 F 61 19 05/12/17 01:29 98.6 F 59 L 19 05/12/17 00:00 74 17 05/11/17 23:29 98.9 F 74 17 BP Pulse Ox 05/12/17 16:37 98 05/12/17 16:00 05/12/17 11:42 97 05/12/17 08:20 97 05/12/17 06:35 95 05/12/17 06:34 96 05/12/17 04:00 98 05/12/17 03:29 140/65 95 05/12/17 01:29 130/65 98 05/12/17 00:00 05/11/17 23:29 130/80 98 Intake and Output 05/12/17 05/12/17 05/12/17 06:59 14:59 22:59 Intake Total 200 480 240 Output Total 1200 200 250 Balance -1000 280 -10 Intake: Oral 200 480 240 Output: Urine 1200 200 250 Other: Voiding Method Urinal Urinal Urinal # Voids 1 1 1 Weight 53.6 kg 53.6 kg Patient Weight 05/13/17 06:59 Weight 53.6 kg - Constitutional General appearance: average body habitus, cooperative - EENT EENT: PERRL, mucous membranes moist - Respiratory Respiratory: lungs clear, normal breath sounds - Cardiovascular Cardiovascular: regular rate, normal S1, normal S2 Extremities: no peripheral edema bilaterally - Gastrointestinal Gastrointestinal: normoactive bowel sounds - Integumentary Integumentary: normal - Neurologic Cranial nerve examination: PERRL, EOMI (There is evidence of a left medial rectus weakness on eye exam.), VFF, V1/V2/V3 grossly intact, face symmetric, tongue midline, intact gag reflex, intact corneal reflex, normal palatal elevation Speech examination: intact Sensorimotor examination: intact Motor examination - right side: 3/5: hip flexors, knee extensors, dorsiflexion, toe extension (EHL), plantarflexion, 4/5: biceps, triceps, wrist flexion, wrist extension, manager of care Motor examination - left side: 3/5: hip flexors, knee extensors, dorsiflexion, toe extension (EHL), plantarflexion, 4/5: biceps, triceps, wrist flexion, wrist extension, manager of care Detailed sensory examination: intact Reflex and gait examination: intact Reflexes: 1+: ankle, bicep, knee, tricep Cerebellar examination: ataxia - Musculoskeletal Musculoskeletal: no pain - Psychiatric Psychiatric: mood/affect appropriate, cooperative Results - Laboratory Findings CBC and BMP: 05/12/17 05:23 05/12/17 05:23 Abnormal Lab Findings: Abnormal Labs 05/11/17 05/11/17 05/11/17 05:21 05:21 05:21 RBC Hgb INR 1.2 H Glucose Total Creatine Kinase Troponin I 0.047 H* Albumin 3.2 L Vitamin B12 05/11/17 05/11/17 05/12/17 11:09 17:33 05:23 RBC Hgb INR Glucose Total Creatine Kinase 33 L 32 L Troponin I 0.043 H* Albumin Vitamin B12 189.0 L 05/12/17 05/12/17 05:23 05:23 RBC 4.25 L Hgb 12.9 L INR Glucose 73 L Total Creatine Kinase Troponin I Albumin 3.2 L Vitamin B12 Assessment and Plan (1) Arterial ischemic stroke, vertebrobasilar, brainstem, acute Current Visit: Yes Status: Acute SNOMED Code(s): 876579510 (2) Alcoholic peripheral neuropathy Current Visit: Yes Status: Acute SNOMED Code(s): 4142661 (3) Hard of hearing Current Visit: Yes Status: Acute SNOMED Code(s): 00782130 (4) Gait abnormality Current Visit: Yes Status: Acute SNOMED Code(s): 73385458 (5) Generalized weakness Current Visit: Yes Status: Acute SNOMED Code(s): 01875128 Plan: This patient is a 72-year-old right-handed white male who was admitted to hospital with symptoms of generalized weakness and dizziness. Symptoms have been problematic suddenly since Wednesday of last week. He does have a history of excessive smoking and alcohol abuse. Apparently drinks 6 beers a day. Apparently on Wednesday he noted acute onset of dizziness and inability to walk. He was admitted to hospital for further evaluation of his dizziness and lightheadedness. He was also complaining of bilateral leg weakness. Patient was sent for MRI of the brain for further evaluation. This study was completed on 05/11/2017. Final impression revealed cerebral atrophy and white matter changes felt to represent chronic ischemia. Radiologist reported no evidence of acute cortical infarct. Review the actual MRI films however raises a suspicion of a brainstem infarct in the left reta. We will have the MRI films reviewed tomorrow once again for further review of this finding on diffusion- weighted imaging. At this time the patient would benefit from ongoing PT OT evaluation. Would recommend that he should be started on aspirin if he is not already taking aspirin for secondary stroke prevention. His generalized weakness and more specific bilateral leg weakness is felt to highly suggest possibility of alcoholic neuropathy in his lower extremities. This can be further evaluated in the outpatient setting with an EMG study. The patient's neurological examination reveals him to have a left sixth nerve palsy. This would be in keeping with the MRI findings as noted above. at this time we will continue close neurological follow-up with this patient. His overall prognosis at this time remains guarded. Time with Patient: Greater than 30
[2017-05-13 06:42] LABS: CH 31.4; CHCM 32.8; HCT 39.5 % (39.0-53.0); HDW 2.25; HGB 12.5 gm/dL (13.0-17.5); MCH 30.4 pg (25.0-35.0); MCHC 31.6 g/dL (31.0-37.0); MCV 96.3 fL (80.0-100.0); Mean Platelet Volume 6.6; RDW 12.8 % (11.5-15.5); WBC 6.4 k/uL (3.8-10.6)
[2017-05-13 07:02] LABS: ALT 23 U/L (21-72); AST 18 U/L (17-59); Alkaline Phosphatase 75 U/L (38-126); Anion Gap 7 mmol/L; Blood Urea Nitrogen 12 mg/dL (9-20); Calcium 9.4 mg/dL (8.4-10.2); Carbon Dioxide 29 mmol/L (22-30); Chloride 99 mmol/L (98-107); Glucose 80 mg/dL (74-99); Magnesium 1.5 mg/dL (1.6-2.3); Non-African American GFR(MDRD) >60 (>60 ml/min/1.73 sqM); Potassium 4.4 mmol/L (3.5-5.1); Sodium 135 mmol/L (137-145); Total Bilirubin 0.5 mg/dL (0.2-1.3); Total Protein 6.6 g/dL (6.3-8.2)
[2017-05-13] MEDS: FAMOTIDINE 20 MG TAB PO SCH ×2 (08:17→22:14)
[2017-05-13] MEDS: ASPIRIN 81 MG PO SCH (08:17)
[2017-05-13] MEDS: amLODIPine 5 MG TAB PO SCH (08:17)
[2017-05-13] MEDS: METOPROLOL TARTRATE 12.5 MG TAB PO SCH (08:17)
[2017-05-13] MEDS: ENOXAPARIN 60 MG/0.6 ML SYRINGE SQ SCH ×2 (08:17→22:13)
[2017-05-13] MEDS: THIAMINE 100 MG/ML 2 ML VIAL IVP SCH (08:18)
[2017-05-13] MEDS: MULTIVITAMINS, THERA 1 EACH TAB PO SCH (08:19)
[2017-05-13] MEDS: FOLIC ACID 1 MG TAB PO SCH (08:19)
[2017-05-13 08:35] VITALS: RESP 18
--- NOTE | 2017-05-13 12:20 | P.PN ---
Subjective Progress Note Date: 05/13/17 This is a pleasant 72-year-old gentleman with history of hypertension , prior TIA and syncopal episode possibly 5 years ago, nicotine dependence, smokes a up-to-date packs of cigarettes a day and drinks at least 6 beers daily. He does not follow regularly with the physician. He presented to the emergency department with symptoms of dizziness, lightheadedness and inability to walk. Consultation was requested because of abnormal troponin. EKG performed on arrival shows junctional rhythm with nonspecific ST-T wave changes. Computed tomography scan of the brain did not reveal any acute intracranial hemorrhage or midline shift. MRI of the brain showed cerebral atrophy and white matter signal changes probably related to chronic small vessel ischemia, demyelinating disease is in the differential diagnosis and no evidence of cortical infarct. Upon examination, patient is resting comfortably in bed. He denies further complaints of lightheadedness or dizziness. Continues to appear to have difficulty walking. Patient is quite thin and appears malnourished. He is quite hard of hearing. Objective - Vital Signs Vital signs: Vital Signs Temp 97.1 F L 05/13/17 11:28 Pulse 68 05/13/17 11:28 Resp 18 05/13/17 11:28 BP 94/52 05/13/17 11:28 Pulse Ox 98 05/13/17 11:28 Intake & Output 05/12/17 05/13/17 05/13/17 18:59 06:59 18:59 Intake Total 720 100 Output Total 450 500 400 Balance 270 -500 -300 Weight 53.6 kg 51 kg Intake: Oral 720 100 Output: Urine 450 500 400 Other: Voiding Method Urinal Urinal # Voids 1 1 1 - Exam PHYSICAL EXAMINATION: HEENT: Head is atraumatic, normocephalic. Pupils equal, round. Neck is supple. There is no elevated jugular venous pressure. HEART EXAMINATION: Heart sounds regular, S1 and S2 normal. No murmur or gallop heard. CHEST EXAMINATION: Lungs are clear to auscultation and precussion. No chest wall tenderness is noted on palpation or with deep breathing. ABDOMEN: Soft, nontender. Bowel sounds are heard. No organomegaly noted. EXTREMITIES: 2+ peripheral pulses with no evidence of peripheral edema and no calf tenderness noted. NEUROLOGIC patient is awake, alert and oriented x3. . - Labs CBC & Chem 7: 05/13/17 06:20 05/13/17 06:20 Labs: Abnormal Lab Results - Last 24 Hours (Table) 05/12/17 05/13/17 05/13/17 Range/Units 05:23 06:20 06:20 RBC 4.10 L (4.30-5.90) m/uL Hgb 12.5 L (13.0-17.5) gm/dL Sodium 135 L (137-145) mmol/L Magnesium 1.5 L (1.6-2.3) mg/dL Albumin 3.2 L (3.5-5.0) g/dL Vitamin B12 189.0 L (200.0-944.0) pg/mL Assessment and Plan Assessment: #1 symptoms of dizziness and lightheadedness and bilateral leg weakness, no syncopal episodes #2 abnormal troponin of unclear significance, patient denies having any chest discomfort, palpitations or shortness of breath, EKG shows junctional rhythm with nonspecific ST-T wave changes #3 hypertension #4 prior TIA course will syncopal episode approximately 5 years ago #5 nicotine dependence, currently smokes approximately 3 packs of cigarettes daily #5 EtOH abuse, patient admits to drinking at least 6 beers daily Plan: From cardiology's perspective, patient may be discharged home and follow-up with his primary care physician as an outpatient. We will decrease Lipitor to 10 mg by mouth daily. [employer] note has been reviewed, I agree with a documented findings and plan of care. Patient was seen and examined.
--- NOTE | 2017-05-13 13:11 | P.PN ---
Subjective Progress Note Date: 05/13/17 Principal diagnosis: weakness and dizziness This 72-year-old male with history of alcohol abuse was admitted with symptoms of weakness. Patient says that symptoms had started on Wednesday. Most prominent for symptom for him is dizziness and instability when he stands up. Denies any headaches. Denies any focal weakness. He is on steady when he stands up. Today patient is status he still feels dizzy when he sits up in bed but better than yesterday. She has to lay down and denies any chest pains or palpitations no headaches Objective - Vital Signs Vital signs: Vital Signs Temp 97.1 F L 05/13/17 11:28 Pulse 68 05/13/17 11:28 Resp 18 05/13/17 11:28 BP 94/52 05/13/17 11:28 Pulse Ox 98 05/13/17 11:28 Intake & Output 05/12/17 05/13/17 05/13/17 18:59 06:59 18:59 Intake Total 720 100 Output Total 450 500 400 Balance 270 -500 -300 Weight 53.6 kg 51 kg Intake: Oral 720 100 Output: Urine 450 500 400 Other: Voiding Method Urinal Urinal # Voids 1 1 1 - Exam gen:alert and oriented lungs:clear to auscultation heart:s1s2 abdomen:soft and depressible,non tender ext:no edema - Labs CBC & Chem 7: 05/13/17 06:20 05/13/17 06:20 Labs: Abnormal Lab Results - Last 24 Hours (Table) 05/13/17 05/13/17 Range/Units 06:20 06:20 RBC 4.10 L (4.30-5.90) m/uL Hgb 12.5 L (13.0-17.5) gm/dL Sodium 135 L (137-145) mmol/L Magnesium 1.5 L (1.6-2.3) mg/dL Albumin 3.2 L (3.5-5.0) g/dL Assessment and Plan (1) CVA (cerebral vascular accident) Narrative/Plan: Continue aspirin Needs rehab Current Visit: Yes Status: Acute Code(s): I63.9 - CEREBRAL INFARCTION, UNSPECIFIED SNOMED Code(s): 416304620 (2) Gait abnormality Narrative/Plan: Patient still getting dizzy having gait abnormality on needs help with standing up Current Visit: Yes Status: Acute Code(s): R26.9 - UNSPECIFIED ABNORMALITIES OF GAIT AND MOBILITY SNOMED Code(s): 61380209 (3) Dizziness Narrative/Plan: Secondary to brainstem CVA Continue aspirin His rehab Current Visit: Yes Status: Acute Code(s): R42 - DIZZINESS AND GIDDINESS SNOMED Code(s): 756454498 (4) Alcohol abuse Narrative/Plan: No signs of alcohol Current Visit: Yes Status: Acute Code(s): F10.10 - ALCOHOL ABUSE, UNCOMPLICATED SNOMED Code(s): 30183042 (5) Hypertensive urgency Narrative/Plan: on losartan controlled Current Visit: Yes Status: Acute Code(s): I16.0 - HYPERTENSIVE URGENCY SNOMED Code(s): 180208635 (6) Tobacco abuse Current Visit: Yes Status: Acute Code(s): Z72.0 - TOBACCO USE SNOMED Code( s): 999697739 (7) Protein calorie malnutrition Current Visit: Yes Status: Acute Code(s): E46 - UNSPECIFIED PROTEIN-CALORIE MALNUTRITION SNOMED Code(s): 195416049 (8) Elevated troponin I measurement Current Visit: Yes Status: Acute Code(s): R74.8 - ABNORMAL LEVELS OF OTHER SERUM ENZYMES SNOMED Code(s): 886234126 Plan: Continue PT OT Patient is still not safe going up on his own Needs physical therapy Needs inpatient rehab
[2017-05-13] MEDS: THIAMINE 100 MG TAB PO SCH (17:30)
--- NOTE | 2017-05-13 20:19 | EEG ---
ELECTROENCEPHALOGRAM REPORT REFERRING PHYSICIAN: Dr. Timmons. CONSULTING/INTERPRETING PHYSICIAN: Dr. Afsaneh Sylvester MD. ELECTROENCEPHALOGRAPHIC EXAMINATION: INDICATION FOR EXAMINATION: This patient is a 72-year-old male being evaluated for acute brainstem stroke. The patient presented with symptoms of dizziness and unsteady gait. AGE: [age]. EEG FINDINGS: A routine 21 channel awake digital EEG recording was accomplished utilizing the 10-20 international system with bipolar and referential montages. The background activity in the most alert resting state consists of a low to medium amplitude, fairly well developed and well sustained 6 Hertz activity over the posterior head regions. This posterior rhythm attenuates to eye opening. There is a small amount of low amplitude 18-20 Hz beta activity seen maximally over the anterior head regions. Muscle and movement artifact was observed on a few occasions during the tracing. Hyperventilation was not performed. Photic stimulation at flash frequencies of 2-30 Hz produced a good symmetrical occipital driving response. No epileptiform discharges were seen. IMPRESSION: This EEG is moderately abnormal in a diffuse fashion due to slowing of the EEG background. The EEG failed to reveal any focal, lateralized, or epileptiform abnormalities. Clinical correlation is recommended. MMODL / IJN: [id number] /
[2017-05-13] MEDS ORDERED: ATORVASTATIN 10 MG TAB PO SCH (21:00)
--- NOTE | 2017-05-14 09:04 | P.PN ---
Subjective Progress Note Date: 05/13/17 This patient is a 72 year old male who was seen in Neurology consultation yesterday for evaluation of dizziness and leg weakness. We completed his neurologic exam yesterday and he demonstrated evidence of left 6th nerve palsy. His initial MRI Brain report was noted to be negative for any cortical stroke. We did review the MRI films last night and there was evidence on diffusion weighted imaging of possible left pontine infaction. The MRI films were reviewed again today with Dr. Davidson. He agrees that there is an acute left pontine infaction. The patient clinical history is consistent with an acute brainstem stroke. Patient would benefit from inpatient rehab evaluation by Dr. Gaitan for post-stroke treatment. The patient states he is still having symptoms of dizziness. He would benefit from a progressive inpatient rehabilitation at [facility]. The patient remains very hard of hearing. His neurological examination continues to demonstrate evidence of a left sixth nerve palsy. He may consider outpatient follow-up in the ophthalmology clinic. He denies having diplopia but is not a very good historian. He does have a history of alcohol abuse. He likely has some degree of alcoholic neuropathy involving his lower extremities. This may be followed up in the outpatient neurology clinic with an EMG study. We would recommend to continue with placement of this patient into the inpatient rehab unit. We will continue close neurological follow-up of this patient during this admission. Objective - Vital Signs Vital signs: Vital Signs Temp 97.1 F L 05/13/17 11:28 Pulse 68 05/13/17 11:28 Resp 18 05/13/17 11:28 BP 94/52 05/13/17 11:28 Pulse Ox 98 05/13/17 11:28 Intake & Output 05/12/17 05/13/17 05/13/17 18:59 06:59 18:59 Intake Total 720 100 Output Total 450 500 400 Balance 270 -500 -300 Weight 53.6 kg 51 kg Intake: Oral 720 100 Output: Urine 450 500 400 Other: Voiding Method Urinal Urinal # Voids 1 1 1 - Exam Physical Examination: PHYSICAL EXAMINATION: Patient is resting comfortably in bed. VITAL SIGNS: Blood pressure is [116/69]. Heart rate is [67]. Respiration is [18] . Temperature is [97.8]. HEENT: Head is atraumatic, neck is supple, there were no carotid bruits. CHEST: Lungs are clear to auscultation and percussion. CARDIAC: S1, S2 normal rate and rhythm. There is no murmur. ABDOMEN: Soft and nontender. Bowel sounds are present. EXTREMITIES: There is no pedal edema. Peripheral pulses are present. Neurological examination: Patient's neurological examination remains unchanged from yesterday. He continues to have evidence of a left sixth nerve palsy. Patient has unsteady gait when ambulating with mild ataxia. - Labs CBC & Chem 7: 05/13/17 06:20 05/13/17 06:20 Labs: Abnormal Lab Results - Last 24 Hours (Table) 05/13/17 05/13/17 Range/Units 06:20 06:20 RBC 4.10 L (4.30-5.90) m/uL Hgb 12.5 L (13.0-17.5) gm/dL Sodium 135 L (137-145) mmol/L Magnesium 1.5 L (1.6-2.3) mg/dL Albumin 3.2 L (3.5-5.0) g/dL Assessment and Plan (1) Arterial ischemic stroke, vertebrobasilar, brainstem, acute Current Visit: Yes Status: Acute SNOMED Code(s): 315386220 (2) Alcoholic peripheral neuropathy Current Visit: Yes Status: Acute SNOMED Code(s): 2883154 (3) Hard of hearing Current Visit: Yes Status: Acute SNOMED Code(s): 39789718 (4) Gait abnormality Current Visit: Yes Status: Acute SNOMED Code(s): 02053783 (5) Generalized weakness Current Visit: Yes Status: Acute SNOMED Code(s): 87454051 Plan: This patient is a 72 year old male who developed sudden onset of dizziness and leg weakness on Wednesday of last week. He was admitted to the hospital for further evaluation of these symptoms. He had an initial MRI brain that was reported negative for acute stroke. His neurological examination yesterday revealed him to have a left 6th cranial nerve palsy. This localized the lesion likely in the brainstem. We reviewed the MRI films yesterday and there appeared to be an area of acute infarction in the left reta. The MRI films were once again reviewed by Dr. Davidson today and he concurs that there is and area of acute infarction in the left pontine region. this MRI finding would coincide with his neurological exam findings of a left sixth nerve palsy. This would explain some of his gait imbalance and dizziness as well due to the location of the brainstem stroke. The patient would benefit from inpatient rehabilitation at [facility]. Would recommend a consultation with Dr. Gaitan for his evaluation. Patient should continue on aspirin therapy for secondary stroke prevention. He has a history of alcohol abuse and likely also suffers from some degree of alcoholic neuropathy involving his lower extremities. This is contributing to his unsteady gait. We will continue close neurological follow-up with this patient during this admission. His overall prognosis at this time remains guarded.
[2017-05-14] MEDS: METOPROLOL TARTRATE 12.5 MG TAB PO SCH (09:06)
[2017-05-14] MEDS: ASPIRIN 81 MG PO SCH (09:07)
[2017-05-14] MEDS: FAMOTIDINE 20 MG TAB PO SCH (09:07)
[2017-05-14] MEDS: amLODIPine 5 MG TAB PO SCH (09:07)
[2017-05-14] MEDS: ENOXAPARIN 60 MG/0.6 ML SYRINGE SQ SCH (09:07)
[2017-05-14 09:51] VITALS: BP 127/72
[2017-05-14 11:18] VITALS: PULSE 55; TEMP 97
[2017-05-14 11:30] VITALS: BMI 15.7
--- NOTE | 2017-05-14 12:08 | P.DS ---
Providers Date of admission: 05/11/17 07:08 Expected date of discharge: 05/14/17 Attending physician: Michael Timmons MD Consults: 05/11/17 07:03 Consult Physician Routine Consulting Provider: Margarita Nuñez Consult Reason/Comments: minimally elevated troponin Do you want consulting provider notified?: Yes 05/12/17 08:01 Consult Physician Routine Consulting Provider: Karolina Sylvester Consult Reason/Comments: dizziness and gait instability Do you want consulting provider notified?: Yes 05/14/17 11:03 Consult Physician Routine Consulting Provider: Arjun Gaitan Consult Reason/Comments: eval for inpatient rehab Do you want consulting provider notified?: Yes Primary care physician: Stated None - Discharge Diagnosis(es) (1) CVA (cerebral vascular accident) Current Visit: Yes Status: Acute (2) Gait abnormality Current Visit: Yes Status: Acute (3) Dizziness Current Visit: Yes Status: Acute (4) Alcohol abuse Current Visit: Yes Status: Acute (5) Hypertensive urgency Current Visit: Yes Status: Acute (6) Tobacco abuse Current Visit: Yes Status: Acute (7) Protein calorie malnutrition Current Visit: Yes Status: Acute (8) Elevated troponin I measurement Current Visit: Yes Status: Acute Hospital Course: this is a 72-year-old male that comes in with sudden onset of weakness and dizziness. Sallowness started on Wednesday patient presented here for evaluation. Patient does have history of alcohol abuse. Patient was evaluated by neurology on salt MRI and thought the patient has have an acute CVA. Started on aspirin and Lipitor. Metoprolol started for blood pressure control. Patient has been accepted at inpatient rehab, patient will be discharged to inpatient rehab today gen:alert and oriented lungs:clear to auscultation heart:s1s2 abdomen:soft and depressible,non tender ext:no edema Time spent with discharge 34 minutes Patient Condition at Discharge: Stable Plan - Discharge Summary Discharge Rx Participant: No New Discharge Prescriptions: New amLODIPine [Norvasc] 5 mg PO DAILY tab Aspirin 81 mg PO DAILY chew Atorvastatin [Lipitor] 10 mg PO HS tab Folic Acid 1 mg PO DAILY@1200 tab Melatonin 5 mg PO HS PRN tablet PRN Reason: Insomnia Metoprolol Tartrate [Lopressor] 12.5 mg PO DAILY tab Multivitamins, Thera [Multivitamin (formulary)] 1 each PO DAILY@1200 tab Thiamine [Vitamin B-1] 250 mg PO BID@1200,1700 tab Discontinued Blood Pressure Med (Unknown) 1 tab PO DIRECTED Discharge Medication List Aspirin 81 mg PO DAILY chew 05/14/17 [Rx] Atorvastatin [Lipitor] 10 mg PO HS tab 05/14/17 [Rx] Folic Acid 1 mg PO DAILY@1200 tab 05/14/17 [Rx] Melatonin 5 mg PO HS PRN tablet 05/14/17 [Rx] Metoprolol Tartrate [Lopressor] 12.5 mg PO DAILY tab 05/14/17 [Rx] Multivitamins, Thera [Multivitamin (formulary)] 1 each PO DAILY@1200 tab [Rx] Thiamine [Vitamin B-1] 250 mg PO BID@1200,1700 tab 05/14/17 [Rx] amLODIPine [Norvasc] 5 mg PO DAILY tab 05/14/17 [Rx] Follow up Appointment(s)/Referral(s): None,Stated [Primary Care Provider] - 1-2 days Discharge Disposition: OTHER INSTITUTION NOT DEFINED
[2017-05-14] MEDS: FOLIC ACID 1 MG TAB PO SCH (12:16)
[2017-05-14] MEDS: MULTIVITAMINS, THERA 1 EACH TAB PO SCH (12:17)
[2017-05-14] MEDS: THIAMINE 100 MG TAB PO SCH (12:17)
--- NOTE | 2017-05-14 13:18 | P.CONS ---
History of Present Illness - Chief Complaint Gait disturbance - History of Present Illness I had the opportunity to see patient for inpatient rehab consultation with regard to gait disturbance. He was admitted to [facility] May 11 with dizziness, lower 70 weakness and inability to stand or walk. Seen by Dr. Elisha Trammell who reviewed MRI and diagnosed acute left pontine infarct. Seen by cardiology as well. Carotid Doppler negative. Head CT and MRI both demonstrated moderate atrophy as well as chronic sinusitis. Chest x-ray demonstrates chronic emphysematous change, mild cardiomegaly and right base atelectasis. PT reports minimal assistance for bed mobility. Moderate assistance for transfers and gait 80 feet with roller walker, second person for safety. OT reports supervision for upper dressing, moderate assistance for lower dressing, bathing, toileting. Maximal assistance for functional ability and transfers. Previous functional sick: Unobtainable from patient. Daughter appears to be significant other. Review of Systems Review of systems: Patient a aphasic and really unable to answer questions. ROS gleaned from chart and exam of patient. ENT: Denies sneezes or discharge. Eyes: Denies discharge or photophobia. Cardiac: Denies chest pain or palpitation. Pulmonary: Denies cough or shortness of breath. Gastrointestinal: Denies nausea, emesis, constipation, diarrhea. Genitourinary: Denies discharge or frequency. Musculoskeletal: Denies muscle or bone aches. Neurologic: Denies motor or sensory change. Confused and aphasic. Endocrine: Denies shakes or sweats. Oncology: Denies cancers. Dermatologic: Denies rash, itching, pruritus. ALLERGY/immunology: Denies sneezes, rashes. Past Medical History Past Medical History: Hypertension Additional Past Medical History / Comment(s): Pt is a somewhat poor historian. HTN per daughter, but does not take his medications. In 2008 pt admitted to [facility] with severe sinusitis/mastoiditis, syncope, hyponatremia, elevated blood sugar and vertigo. Pt states the only medical hx he is aware of was a syncopal event. History of Any Multi-Drug Resistant Organisms: None Reported Past Surgical History: Hernia Repair Additional Past Surgical History / Comment(s): R inguinal hernia repair. Past Anesthesia/Blood Transfusion Reactions: No Reported Reaction Past Psychological History: No Psychological Hx Reported Smoking Status: Current every day smoker Past Alcohol Use History: Daily (6 beers daily, last drink Tuesday 05/08), Heavy Past Drug Use History: None Reported - Past Family History Father Family Medical History: No Reported History Mother Family Medical History: Diabetes Mellitus Additional Family Medical History / Comment(s): Brain Tumor Medications and Allergies Home Medications Medication Instructions Recorded Confirmed Type Aspirin 81 mg PO DAILY chew 05/14/17 Rx Atorvastatin [Lipitor] 10 mg PO HS tab 05/14/17 Rx Folic Acid 1 mg PO DAILY@1200 tab 05/14/17 Rx Melatonin 5 mg PO HS PRN tablet 05/14/17 Rx Metoprolol Tartrate [Lopressor] 12.5 mg PO DAILY tab 05/14/17 Rx Multivitamins, Thera [Multivitamin 1 each PO DAILY@1200 tab 05/14/17 Rx (formulary)] Thiamine [Vitamin B-1] 250 mg PO BID@1200,1700 tab 05/14/17 Rx amLODIPine [Norvasc] 5 mg PO DAILY tab 05/14/17 Rx Allergies Allergy/AdvReac Type Severity Reaction Status Date / Time No Known Allergies Allergy Verified 05/11/17 07:49 Physical Exam Vitals: Vital Signs Temp Pulse Pulse Resp BP Pulse Ox 05/14/17 11:16 97.0 F L 55 L 18 127/72 99 05/14/17 08:00 97.1 F L 75 18 127/72 97 05/14/17 04:00 97.4 F L 70 18 132/72 97 05/14/17 00:00 96.9 F L 67 18 129/76 98 05/13/17 19:54 97.3 F L 64 18 109/63 97 05/13/17 15:48 97.8 F 66 18 116/69 97 Intake and Output 05/13/17 05/14/17 05/14/17 22:59 06:59 14:59 Intake Total 100 240 Output Total 600 800 400 Balance -500 -800 -160 Intake: Oral 100 240 Output: Urine 600 800 400 Other: Voiding Method Urinal Urinal # Voids 2 1 Weight 52.5 kg 52.5 kg Patient Weight 05/15/17 06:59 Weight 52.5 kg Skin: Good color, texture, turgor. General: Thin build, almost wasted and comfortable appearance. Head: Normocephalic, atraumatic. Eyes: Symmetric. Pupils equal round. Ears: Symmetric. Hearing within normal limits. Mouth: Clear. Neck: Supple. Carotid without bruit. Cardiac: Regular rate and rhythm. Lungs: Clear anteriorly and posteriorly. Abdomen: Soft active nontender. Extremities: Normal tone. Thin limbs. Neurological: Mental status: Alert, cooperative, pleasant. Cranial nerves: Symmetric facial tone and trapezius. Motor: Can actively moves all limbs. Sensation: Intact throughout. DTRs: Symmetric and equal throughout. Mobility: Sits with physical assistance. Results CBC & Chem 7: 05/13/17 06:20 05/13/17 06:20 Chest x-ray: report reviewed (Chronic emphysematous change, mild cardiomegaly, right base atelectasis.) CT Scan - head: report reviewed (Moderate cerebral atrophy and chronic sinusitis.) MRI - head: report reviewed (Moderate cerebral atrophy/ischemia and chronic sinusitis.) Assessment and Plan (1) Arterial ischemic stroke, vertebrobasilar, brainstem, acute Current Visit: Yes Status: Acute Code(s): I63.219 - CEREB INFRC DUE TO UNSP OCCLS OR STENOSIS OF UNSP VERTEB ART; I63.22 - CEREB INFRC DUE TO UNSP OCCLS OR STENOSIS OF BASILAR ARTERY SNOMED Code(s): 555191000 Plan: Impression: 1. Gait disturbance. 2. Left pontine infarct, acute, resultant gait ataxia/disturbance. 3. Alcohol with history of neuropathy. 4. Hypertension. 5. Aphasia. Comments and plan: PT, OT notes reviewed. Patient okayed for inpatient rehabilitation and will be transferred today.
== END 2017-05-14 14:18 | DRG 65 ==
LOC: EC 05:05 → 6SEL 07:08
PROVIDERS: ADMIT Family Medicine; ATTEND Family Medicine
DX: I63.9 Cerebral infarction, unspecified (principal); E44.1 Mild protein-calorie malnutrition; R64 Cachexia; J98.11 Atelectasis; H49.22 Sixth [abducent] nerve palsy, left eye; R47.01 Aphasia; G62.1 Alcoholic polyneuropathy; R26.0 Ataxic gait; F10.10 Alcohol abuse, uncomplicated; F17.210 Nicotine dependence, cigarettes, uncomplicated; H91.90 Unspecified hearing loss, unspecified ear; I16.0 Hypertensive urgency; I10 Essential (primary) hypertension; J32.9 Chronic sinusitis, unspecified; J43.9 Emphysema, unspecified; Z86.73 Personal history of transient ischemic attack (TIA), and cerebral infarction without residual deficits; R74.8 Abnormal levels of other serum enzymes; Z79.82 Long term (current) use of aspirin; Z79.899 Other long term (current) drug therapy
CPT/HCPCS: 36415; 70450; 70553; 71010; 80053; 80061; 81003; 82550; 82553; 82607; 83036; 83605; 83735; 84443; 84484; 85025; 85027; 85610; 93005; 93306; 93880; 95816; 96360; 99285

== ENCOUNTER 2022-04-30 15:01 | Inpatient (IN) | payer MEDICARE ==
--- NOTE | 2022-04-30 15:28 | ED ---
General Adult HPI - General Chief complaint: Altered Mental Status Stated complaint: Mental Health,Suicidal Time Seen by Provider: 04/30/22 15:17 Source: EMS Mode of arrival: EMS Limitations: altered mental status (There appears to be some underlying dementia versus delirium) - History of Present Illness Initial comments: This patient is 77-year-old man [facility] Triage note states that there was some suicidal ideation. When I interview the patient, he is not expressing any that. He states he just does not feel well. He does acknowledge having a cough and some congestion. He is not having any pain. He is denying chest, back, abdomen or head pain specifically. No vomiting/diarrhea. The patient is not able to further describe to states he is not feeling well. Denies wanting to kill himself -: unknown Quality: other (Congestion) Consistency: constant Improves with: none Worsens with: none Associated Symptoms: cough Treatments Prior to Arrival: none - Related Data Home Medications Medication Instructions Recorded Confirmed Albuterol Nebulized [Ventolin 2.5 mg INHALATION RT-QID 04/30/22 04/30/22 Nebulized] Apixaban [Eliquis] 5 mg PO BID 04/30/22 04/30/22 Budesonide [Pulmicort] 0.5 mg INHALATION RT-BID 04/30/22 04/30/22 Cholecalciferol [Vitamin D3 (125 125 mcg PO DAILY 04/30/22 04/30/22 Mcg = 5000 Iu)] Folic Acid 1 mg PO DAILY 04/30/22 04/30/22 HYDROcodone/APAP 5-325MG [Haynes 1 tab PO Q8H PRN 04/30/22 04/30/22 5-325] Losartan Potassium [Cozaar] 25 mg PO DAILY 04/30/22 04/30/22 Metoprolol Tartrate [Lopressor] 25 mg PO TID@0500,1300,2100 04/30/22 04/30/22 Multivitamins, Thera [Multivitamin 1 tab PO DAILY 04/30/22 04/30/22 (formulary)] Omeprazole [PriLOSEC] 20 mg PO DAILY 04/30/22 04/30/22 Ondansetron [Zofran] 4 mg PO Q8HR PRN 04/30/22 04/30/22 Potassium Chloride ER [K-Dur 20] 20 meq PO DAILY 04/30/22 04/30/22 Sennosides [Senokot] 8.6 mg PO BID@0800,1600 04/30/22 04/30/22 Thiamine [Vitamin B-1] 100 mg PO DAILY 04/30/22 04/30/22 dexAMETHasone 2 mg PO BID@0800,1600 04/30/22 04/30/22 Previous Rx's Medication Instructions Recorded Aspirin 81 mg PO DAILY chew 05/14/17 Allergies Allergy/AdvReac Type Severity Reaction Status Date / Time No Known Allergies Allergy Verified 04/30/22 18:56 Review of Systems ROS Statement: Those systems with pertinent positive or pertinent negative responses have been documented in the HPI. ROS Other: All systems not noted in ROS Statement are negative. Limitations: ROS unobtainable due to patients medical condition (There appears to be some underlying dementia) Constitutional: Reports: weakness. Denies: fever Respiratory: Reports: cough. Denies: dyspnea Cardiovascular: Denies: chest pain Gastrointestinal: Denies: abdominal pain Musculoskeletal: Denies: back pain Neurological: Denies: headache Past Medical History Past Medical History: Hypertension Additional Past Medical History / Comment(s): Pt is a somewhat poor historian. HTN per daughter, but does not take his medications. In 2008 pt admitted to [facility] with severe sinusitis/mastoiditis, syncope, hyponatremia, elevated blood sugar and vertigo. Pt states the only medical hx he is aware of was a syncopal event. History of Any Multi-Drug Resistant Organisms: None Reported Past Surgical History: Hernia Repair Additional Past Surgical History / Comment(s): R inguinal hernia repair. Past Anesthesia/Blood Transfusion Reactions: No Reported Reaction Past Psychological History: No Psychological Hx Reported Past Alcohol Use History: Daily, Heavy Past Drug Use History: None Reported - Past Family History Father Family Medical History: No Reported History Mother Family Medical History: Diabetes Mellitus Additional Family Medical History / Comment(s): Brain Tumor General Exam Limitations: altered mental status General appearance: alert Head exam: Present: atraumatic, normocephalic Eye exam: Present: normal appearance. Absent: scleral icterus, conjunctival injection ENT exam: Present: mucous membranes dry Neck exam: Present: normal inspection, full ROM. Absent: meningismus Respiratory exam: Present: rhonchi, other (Occasional cough during exam). Absent: respiratory distress, wheezes, rales, stridor Cardiovascular Exam: Present: regular rate, normal rhythm, normal heart sounds. Absent: systolic murmur, diastolic murmur, rubs, gallop GI/Abdominal exam: Present: soft. Absent: distended, tenderness, guarding, rebo und, rigid, mass Extremities exam: Present: normal inspection, normal capillary refill. Absent: pedal edema, calf tenderness Back exam: Present: normal inspection. Absent: CVA tenderness (R), CVA tenderness (L), vertebral tenderness Neurological exam: Present: alert. Absent: oriented X3, motor sensory deficit Skin exam: Present: warm, dry, intact, normal color. Absent: rash Course Vital Signs 04/30/22 04/30/22 04/30/22 15:09 18:00 18:09 Temperature 97.4 F L 98.8 F 97.5 F L Pulse Rate 97 90 Pulse Rate [ 67 Pulse Oximetery ] Respiratory 18 20 16 Rate Blood Pressure 94/58 110/60 Blood Pressure 107/69 [Left Arm] O2 Sat by Pulse 98 96 Oximetry 04/30/22 04/30/22 04/30/22 19:01 19:41 20:00 Temperature 98.8 F 97.5 F L Pulse Rate 70 90 Pulse Rate [ 67 Pulse Oximetery ] Respiratory 16 16 15 Rate Blood Pressure 101/60 112/68 Blood Pressure 107/69 [Left Arm] O2 Sat by Pulse 95 98 98 Oximetry Medical Decision Making - Lab Data Result diagrams: 05/02/22 07:15 05/02/22 07:15 Lab Results 04/30/22 04/30/22 04/30/22 Range/Units 15:23 15:23 15:23 WBC 14.6 H (3.8-10.6) k/uL RBC 4.03 L (4.30-5.90) m/uL Hgb 13.4 (13.0-17.5) gm/dL Hct 40.5 (39.0-53.0) % MCV 100.4 H (80.0-100.0) fL MCH 33.3 (25.0-35.0) pg MCHC 33.1 (31.0-37.0) g/dL RDW 14.0 (11.5-15.5) % Plt Count 251 (150-450) k/uL MPV 8.5 Neutrophils % (Manual) 80 % Band Neuts % (Manual) 7 % Lymphocytes % (Manual) 11 % Monocytes % (Manual) 3 % Metamyelocytes % 1 % Neutrophils # (Manual) 12.70 H (1.3-7.7) k/uL Lymphocytes # (Manual) 1.61 (1.0-4.8) k/uL Monocytes # (Manual) 0.44 (0-1.0) k/uL Metamyelocytes # (Man) 0.15 H (0) k/uL Nucleated RBCs 0 (0-0) /100 WBC Manual Slide Review Performed Macrocytosis Slight Sodium 136 L (137-145) mmol/L Potassium 6.2 H* (3.5-5.1) mmol/L Chloride 109 H (98-107) mmol/L Carbon Dioxide 17 L (22-30) mmol/L Anion Gap 10 mmol/L BUN 71 H (9-20) mg/dL Creatinine 1.05 (0.66-1.25) mg/dL Est GFR (CKD-EPI)AfAm 80 (>60 ml/min/1.73 sqM) Est GFR (CKD-EPI)NonAf 70 (>60 ml/min/1.73 sqM) Glucose 98 (74-99) mg/dL Calcium 9.2 (8.4-10.2) mg/dL Total Bilirubin 0.8 (0.2-1.3) mg/dL AST 38 (17-59) U/L ALT 24 (4-49) U/L Alkaline Phosphatase 88 (38-126) U/L Total Protein 5.4 L (6.3-8.2) g/dL Albumin 2.8 L (3.5-5.0) g/dL TSH 1.150 (0.465-4.680) mIU/L Urine Color Light Red Urine Appearance Turbid (Clear) Urine pH 8.0 (5.0-8.0) Ur Specific [place] 1.017 (1.001-1.035) Urine Protein 2+ H (Negative) Urine Glucose (UA) Negative (Negative) Urine Ketones Negative (Negative) Urine Blood Large H (Negative) Urine Nitrite Negative (Negative) Urine Bilirubin Negative (Negative) Urine Urobilinogen 2.0 (<2.0) mg/dL Ur Leukocyte Esterase Large H (Negative) Urine RBC 122 H (0-5) /hpf Urine WBC >182 H (0-5) /hpf Urine WBC Clumps Occasional H (None) /hpf Uric Acid Crystals Few H (None) /hpf Urine Bacteria Occasional H (None) /hpf Hyaline Casts 4 H (0-2) /lpf Urine Mucus Rare H (None) /hpf Urine Yeast (Budding) Moderate H (None) /hpf Coronavirus (PCR) (Not Detectd) 04/30/22 Range/Units 16:36 WBC (3.8-10.6) k/uL RBC (4.30-5.90) m/uL Hgb (13.0-17.5) gm/dL Hct (39.0-53.0) % MCV (80.0-100.0) fL MCH (25.0-35.0) pg MCHC (31.0-37.0) g/dL RDW (11.5-15.5) % Plt Count (150-450) k/uL MPV Neutrophils % (Manual) % Band Neuts % (Manual) % Lymphocytes % (Manual) % Monocytes % (Manual) % Metamyelocytes % % Neutrophils # (Manual) (1.3-7.7) k/uL Lymphocytes # (Manual) (1.0-4.8) k/uL Monocytes # (Manual) (0-1.0) k/uL Metamyelocytes # (Man) (0) k/uL Nucleated RBCs (0-0) /100 WBC Manual Slide Review Macrocytosis Sodium (137-145) mmol/L Potassium (3.5-5.1) mmol/L Chloride (98-107) mmol/L Carbon Dioxide (22-30) mmol/L Anion Gap mmol/L BUN (9-20) mg/dL Creatinine (0.66-1.25) mg/dL Est GFR (CKD-EPI)AfAm (>60 ml/min/1.73 sqM) Est GFR (CKD-EPI)NonAf (>60 ml/min/1.73 sqM) Glucose (74-99) mg/dL Calcium (8.4-10.2) mg/dL Total Bilirubin (0.2-1.3) mg/dL AST (17-59) U/L ALT (4-49) U/L Alkaline Phosphatase (38-126) U/L Total Protein (6.3-8.2) g/dL Albumin (3.5-5.0) g/dL TSH (0.465-4.680) mIU/L Urine Color Urine Appearance (Clear) Urine pH (5.0-8.0) Ur Specific [place] (1.001-1.035) Urine Protein (Negative) Urine Glucose (UA) (Negative) Urine Ketones (Negative) Urine Blood (Negative) Urine Nitrite (Negative) Urine Bilirubin (Negative) Urine Urobilinogen (<2.0) mg/dL Ur Leukocyte Esterase (Negative) Urine RBC (0-5) /hpf Urine WBC (0-5) /hpf Urine WBC Clumps (None) /hpf Uric Acid Crystals (None) /hpf Urine Bacteria (None) /hpf Hyaline Casts (0-2) /lpf Urine Mucus (None) /hpf Urine Yeast (Budding) (None) /hpf Coronavirus (PCR) Not Detected (Not Detectd) Disposition Clinical Impression: Generalized weakness, Pneumonia, Hyperkalemia Disposition: ADMITTED IP TO THIS HOSP Condition: Poor Is patient prescribed a controlled substance at d/c from ED?: No
[2022-04-30 15:48] LABS: HCT 40.5 % (39.0-53.0); HGB 13.4 gm/dL (13.0-17.5); MCH 33.3 pg (25.0-35.0); MCHC 33.1 g/dL (31.0-37.0); MCV 100.4 fL (80.0-100.0); Macrocytosis Slight; Mean Platelet Volume 8.5; Platelet Count 251 k/uL (150-450); RBC 4.03 m/uL (4.30-5.90); WBC 14.6 k/uL (3.8-10.6)
[2022-04-30 16:06] LABS: Albumin 2.8 g/dL (3.5-5.0); Calcium 9.2 mg/dL (8.4-10.2); Total Bilirubin 0.8 mg/dL (0.2-1.3); Total Protein 5.4 g/dL (6.3-8.2)
[2022-04-30 16:13] LABS: Potassium 6.2 mmol/L (3.5-5.1)
[2022-04-30 16:17] LABS: Band Neutrophils % 7 %; Lymphocytes # (M) 1.61 k/uL (1.0-4.8); Metamyelocytes # (M) 0.15 k/uL (0); Metamyelocytes % 1 %; Monocytes # (M) 0.44 k/uL (0-1.0); Neutrophils % (M) 80 %; Nucleated Red Blood Cells 0 /100 WBC (0-0); Total Cells Counted 200
[2022-04-30 16:29] LABS: Appearance,Urine Turbid (Clear); Bacteria,Urine Occasional /hpf; Bilirubin,Urine Negative (Negative); Blood,Urine Large (Negative); Budding Yeast,Urine Moderate /hpf; Color,Urine Light Red; Glucose,Urine (UA) Negative (Negative); Hyaline Casts,Urine 4 /lpf (0-2); Ketones,Urine Negative (Negative); Leukocyte Esterase,Urine Large (Negative); Mucus,Urine Rare /hpf; Nitrite,Urine Negative (Negative); Protein,Urine 2+ (Negative); RBC,Urine 122 /hpf (0-5); Specific Gravity,Urine 1.017 (1.001-1.035); Uric Acid Crystals,Urine Few /hpf; WBC,Urine >182 /hpf (0-5)
--- NOTE | 2022-04-30 16:48 | XR ---
EXAMINATION TYPE: XR chest 2V DATE OF EXAM: 04/30/2022 COMPARISON: 05/11/2017 HISTORY: Cough TECHNIQUE: 2 views FINDINGS: There is some patchy bilateral lower lobe airspace infiltrates. Upper lung solano are clear . No heart failure. Heart size is normal. There are no hilar masses. No pleural effusion. IMPRESSION: There is some patchy bilateral lower lobe pneumonia which is mostly new compared to last exam.
[2022-04-30] MEDS ORDERED: PIPERACILLIN-TAZOBACTAM 3.375 GM in SODIUM CHLORIDE 0.9% 100 ML IVPB STA (17:40)
[2022-04-30] MEDS ORDERED: AZITHROMYCIN 500 MG in SODIUM CHLORIDE 0.9% 250 ML IVPB STA (17:40)
[2022-04-30] MEDS ORDERED: PNEUMONIA PROTOCOL UTILIZED 1 EACH MISC PO PRN (17:40)
[2022-04-30] MEDS ORDERED: SODIUM CHLORIDE 0.9% 1,000 ML IV SCH (17:45)
[2022-04-30 18:56] LABS: Potassium 6.1 mmol/L (3.5-5.1)
[2022-05-01] MEDS: PIPERACILLIN-TAZOBACTAM 3.375 GM in SODIUM CHLORIDE 0.9% 100 ML IVPB SCH ×3 (01:07→16:53)
[2022-05-01] MEDS: AZITHROMYCIN 500 MG in SODIUM CHLORIDE 0.9% 250 ML IVPB SCH (09:40)
[2022-05-01] MEDS ORDERED: HYDROcodone/APAP 5-325MG 1 EACH TAB PO PRN (10:00)
[2022-05-01] MEDS ORDERED: ONDANSETRON 4 MG TAB PO PRN (10:00)
[2022-05-01] MEDS: BUDESONIDE 0.5 MG/2 ML NEBU INHALATION SCH ×2 (11:10→21:05)
[2022-05-01] MEDS: ALBUTEROL NEBULIZED 2.5 MG/3 ML INHALATION SCH ×2 (11:10→14:54)
[2022-05-01] MEDS: SODIUM ZIRCONIUM CYCLOSILICATE 10 GM PACKET PO SCH ×3 (12:13→22:36)
[2022-05-01] MEDS: dexAMETHasone 2 MG TAB PO SCH ×2 (12:14→16:53)
[2022-05-01] MEDS: MULTIVITAMINS, THERA 1 EACH TAB PO SCH (12:14)
[2022-05-01] MEDS: ASPIRIN 81 MG PO SCH (12:14)
[2022-05-01] MEDS: THIAMINE 100 MG TAB PO SCH (12:14)
[2022-05-01] MEDS: APIXABAN 5 MG TAB PO SCH ×2 (12:14→22:36)
[2022-05-01] MEDS: METOPROLOL TARTRATE 25 MG TAB PO SCH ×2 (12:14→20:48)
[2022-05-01] MEDS: PANTOPRAZOLE 40 MG TABLET PO SCH (12:21)
--- NOTE | 2022-05-01 14:26 | P.CN ---
Psychiatric Consult - . Consult date: 05/01/22 Consult:: 05/01/22 14:25 IDENTIFYING DATA: This patient is a , retired, 77-year-old male who presented to our hospital for psychiatric evaluation after reportedly endorsing suicidal ideation. HISTORY OF PRESENT ILLNESS: The patient presented to the hospital on 04/30/2022 for suicidal ideation. The patient came under certification for suicidal ideation. He was subsequently transferred to the hospital. Upon evaluation by this provider, the patient is not endorsing any suicidal or homicidal ideation, intention, and/or plan. He reports no auditory or visual hallucinations. He is noted to be confused at times and has difficulty hearing. Collateral information was provided by his daughter who reports, "I was present when my father made those statements about suicide. I firmly believe that he was just saying things out of frustration and that he has no intention to hurt himself." The patient daughter states that he has a history of alcohol use disorder however has no significant psychiatric history. She vehemently denies any prior attempts at suicide from the patient. The patient is noted to have urinary tract infection on this admission and has electrolyte abnormalities. However on assessment by this provider, patient is not expressing any issues or concerns at this time. He is alert and oriented to self and place only. PAST PSYCHIATRIC HISTORY: As per daughter, the patient has no significant psychiatric history aside from a history of heavy alcohol use. She vehemently denies any previous inpatient psychiatric admissions, any outpatient treatment, or any history of psychotropic medications. She vehemently denies any previous attempt at suicide by the patient. PAST MEDICAL HISTORY: Past Medical History: Hypertension Additional Past Medical History / Comment(s): Pt is a somewhat poor historian. HTN per daughter, but does not take his medications. In 2008 pt admitted to [facility] with severe sinusitis/mastoiditis, syncope, hyponatremia, elevated blood sugar and vertigo. Pt states the only medical hx he is aware of was a syncopal event. History of Any Multi-Drug Resistant Organisms: None Reported Past Surgical History: Hernia Repair Additional Past Surgical History / Comment(s): R inguinal hernia repair. Past Anesthesia/Blood Transfusion Reactions: No Reported Reaction Past Psychological History: No Psychological Hx Reported Past Alcohol Use History: Daily, Heavy Past Drug Use History: None Reported ALLERGIES: NO KNOWN DRUG ALLERGIES CHEMICAL DEPENDENCY HISTORY: The patient has a reported history of heavy alcohol use. FAMILY PSYCHIATRIC/SUBSTANCE USE HISTORY: No reported family psychiatric history. SOCIAL HISTORY: Patient is retired and . He has been staying in [facility] for rehab. MENTAL STATUS EXAM: General Appearance: Patient appears to be stated age is alert, pleasant, and cooperative. Patient appears to have fair hygiene and grooming wearing hospital gown with fair eye contact. Behavior: Patient is calmly lying in bed without any agitated behavior. Speech: Patient's speech is fluent and nonpressured. Mood/Affect: Patient reports their mood is "doing okay", affect is congruent Suicidality/Homicidality: Patient denies having any suicidal or homicidal ideation intent or plan. Perceptions: Patient denies any visual hallucinations and denies any auditory hallucinations Though content/process: There is no evidence of any delusional thought content and thought process is linear and goal-directed. Memory and concentration: AOX2, grossly intact for the purposes of this session. Judgment and insight: Poor at this time likely secondary to altered mental status Vital Signs Temp 97.5 F L 05/01/22 07:50 Pulse 89 05/01/22 12:50 Resp 16 05/01/22 12:50 BP 110/68 05/01/22 12:24 Pulse Ox 95 05/01/22 12:24 FiO2 Intake & Output 04/30/22 05/01/22 05/01/22 18:59 06:59 18:59 Weight 81.647 kg Other: Voiding Method Diaper Incontinent Laboratory Results WBC 14.6 k/uL (3.8-10.6) H 04/30/22 15: RBC 4.03 m/uL (4.30-5.90) L 04/30/22 15:23 Hgb 13.4 gm/dL (13.0-17.5) 04/30/22 15: Hct 40.5 % (39.0-53.0) 04/30/22 15: MCV 100.4 fL (80.0-100.0) H 04/30/22 15:23 MCH 33.3 pg (25.0-35.0) 04/30/22 15: MCHC 33.1 g/dL (31.0-37.0) 04/30/22 15: RDW 14.0 % (11.5-15.5) 04/30/22 15:23 Plt Count 251 k/uL (150-450) 04/30/22 15: MPV 8.5 04/30/22 15:23 Neutrophils % (Manual) 80 % 04/30/22 15:23 Band Neuts % (Manual) 7 % 04/30/22 15:23 Lymphocytes % (Manual) 11 % 04/30/22 15: Monocytes % (Manual) 3 % 04/30/22 15: Metamyelocytes % 1 % 04/30/22 15:23 Neutrophils # (Manual) 12.70 k/uL (1.3-7.7) H 04/30/22 15:23 Lymphocytes # (Manual) 1.61 k/uL (1.0-4.8) 04/30/22 15: Monocytes # (Manual) 0.44 k/uL (0-1.0) 04/30/22 15: Metamyelocytes # (Man) 0.15 k/uL (0) H 04/30/22 15: Nucleated RBCs 0 /100 WBC (0-0) 04/30/22 15:23 Manual Slide Review Performed 04/30/22 15:23 Macrocytosis Slight 04/30/22 15:23 Sodium 136 mmol/L (137-145) L 04/30/22 18:20 Potassium 6.1 mmol/L (3.5-5.1) H* 04/30/22 18:20 Chloride 108 mmol/L (98-107) H 04/30/22 18:20 Carbon Dioxide 20 mmol/L (22-30) L 04/30/22 18:20 Anion Gap 8 mmol/L 04/30/22 18:20 BUN 73 mg/dL (9-20) H 04/30/22 18:20 Creatinine 0.97 mg/dL (0.66-1.25) 04/30/22 18:20 Est GFR (CKD-EPI)AfAm 89 (>60 ml/min/1.73 sqM) 04/30/22 18:20 Est GFR (CKD-EPI)NonAf 77 (>60 ml/min/1.73 sqM) 04/30/22 18:20 Glucose 120 mg/dL (74-99) H 04/30/22 18:20 Plasma Lactic Acid [place] 1.9 mmol/L (0.7-2.0) 04/30/22 17:55 Calcium 9.0 mg/dL (8.4-10.2) 04/30/22 18:20 Total Bilirubin 0.8 mg/dL (0.2-1.3) 04/30/22 15:23 AST 38 U/L (17-59) 04/30/22 15:23 ALT 24 U/L (4-49) 04/30/22 15:23 Alkaline Phosphatase 88 U/L (38-126) 04/30/22 15:23 NT-Pro-B Natriuret Pep 612 pg/mL 04/30/22 18:38 Total Protein 5.4 g/dL (6.3-8.2) L 04/30/22 15: Albumin 2.8 g/dL (3.5-5.0) L 04/30/22 15:23 TSH 1.150 mIU/L (0.465-4.680) 04/30/22 15: Urine Color Light Red 04/30/22 15:23 Urine Appearance Turbid (Clear) 04/30/22 15:23 Urine pH 8.0 (5.0-8.0) 04/30/22 15: Ur Specific [place] 1.017 (1.001-1.035) 04/30/22 15:23 Urine Protein 2+ (Negative) H 04/30/22 15:23 Urine Glucose (UA) Negative (Negative) 04/30/22 15: Urine Ketones Negative (Negative) 04/30/22 15: Urine Blood Large (Negative) H 04/30/22 15: Urine Nitrite Negative (Negative) 04/30/22 15: Urine Bilirubin Negative (Negative) 04/30/22 15: Urine Urobilinogen 2.0 mg/dL (<2.0) 04/30/22 15: Ur Leukocyte Esterase Large (Negative) H 04/30/22 15: Urine RBC 122 /hpf (0-5) H 04/30/22 15:23 Urine WBC >182 /hpf (0-5) H 04/30/22 15:23 Urine WBC Clumps Occasional /hpf (None) H 04/30/22 15:23 Uric Acid Crystals Few /hpf (None) H 04/30/22 15:23 Urine Bacteria Occasional /hpf (None) H 04/30/22 15:23 Hyaline Casts 4 /lpf (0-2) H 04/30/22 15:23 Urine Mucus Rare /hpf (None) H 04/30/22 15:23 Urine Yeast (Budding) Moderate /hpf (None) H 04/30/22 15:23 Coronavirus (PCR) Not Detected (Not Detectd) 04/30/22 16:36 Allergies Allergy/AdvReac Type Severity Reaction Status Date / Time No Known Allergies Allergy Verified 04/30/22 18:56 IMPRESSIONS: Altered mental status secondary to urinary tract infection versus acute metabolic encephalopathy Alcohol use disorder PLAN: -At this time patient DOES NOT meet criteria for inpatient psychiatric admission. This provider has filled out a negative clinical certificate. -Delirium precautions recommended with patient including - avoiding use of narcotics and [employer] sedatives, limit anticholinergic medications when possible, frequent re-orientation, minimize use of restraints, open window shades during the day and close them at night -Would recommend the following medication changes/additions: No medication recommendations will be made. -Discontinue one-to-one sitter -Patient is cleared psychiatrically for discharge. Safety planning was discussed with the patient's daughter. She expresses no acute concerns regarding his mental health and denies any concern for imminent risk of harm to self or others. -Psychiatry will sign off at this point, please contact with any questions. 05/01/22 14:25
--- NOTE | 2022-05-01 16:13 | P.HPIM ---
History of Present Illness H&P Date: 05/01/22 Chief Complaint: Cough This is a pleasant 77-year-old patient, follows with Dr. Rene Walden. Currently at [facility]. Chronic stable medical co nditions include atrial fibrillation, COPD, hypertension, recent repair of his femur at [facility]. Patient is at rehab currently at [facility]. Rather weak not really able to walk. Has a cough. Some phlegm. No fever no chills. Tired. Apparently the [facility] patient was frustrated at the [facility] and talked about killing himself. Patient admitted for pneumonia and also for psychiatry consultation. Patient's currently not feeling suicidal. Review of systems: GEN.: Tired EYES: None HEENT: None NECK: None RESPIRATORY: As above] CARDIOVASCULAR: None GASTROINTESTINAL: None GENITOURINARY: No urinary symptoms MUSCULOSKELETAL: Joint pains LYMPHATICS: None HEMATOLOGICAL: None PSYCHIATRY: Able to answer simple questions NEUROLOGICAL: None Social history: Currently at rehab at [facility]. Started smoking as a teen and 3 packs a day smoker up until very recently. Was drinking sixpack daily up to recently. Physical examination: VITAL SIGNS: 97.4, 97, 18, 90/58, 98% room air GENERAL: BMI 25.8, laying in bed awake, tired. EYES: Pupils equal. Conjunctiva normal. HEENT: [External appearance of nose and ears normal, oral cavity missing dentition NECK: JVD not raised; masses not palpable. HEART: First and second heart sounds are normal; no edema. LUNGS: Respiratory rate increased; diminished breath sounds, coarse crackles. ABDOMEN: Soft, nontender, liver spleen not palpable, no masses palpable. PSYCH: [Able tonsil simple questions mood and affect slightly low. MUSCULOSKELETAL:No Clubbing/cyanosis;muscles-grossly intact. Evidence of OA NEUROLOGICAL: Cranial nerves grossly intact; no facial asymmetry, power and sensation grossly intact. LYMPHATICS: No lymph nodes palpable in the axilla and neck INVESTIGATIONS, reviewed in the clinical context: WBC 14.6 hemoglobin 13.4 platelets 251 sodium 136 potassium 6.1 bicarb 20 BUN 73 creatinine 0.97 albumin 2.8 COVID 19: Not detected Chest x-ray film patchy bilateral lower lobe pneumonia. Assessment and plan: -Pneumonia, suspect gram-negative organism IV Zosyn. Zithromax -COPD in a previous smoker DuoNeb, nebulized Pulmicort -Atrial fibrillation On Lopressor, eliquis -Essential hypertension Cozaar, Lopressor -Hyperkalemia Lokelma. Low potassium diet. -GERD Prilosec -Primary osteoarthritis multiple joints bilaterally. Recent femur surgery. [place] -Medical debility, patient has barely been walking. PTOT. -Patient commended about suicidal ideation. Consults psychiatry -Full code I spoke to patient's daughter over the phone. Updated. IV Zosyn. DuoNeb. Nebulized Pulmicort. Resume home medications. PTOT. Telemetry Past Medical History Past Medical History: Atrial Fibrillation, COPD, CVA/TIA, Hypertension, Pneumonia Additional Past Medical History / Comment(s): Pt is a somewhat poor historian. HTN per daughter, but does not take his medications. In 2008 pt admitted to [facility] with severe sinusitis/mastoiditis, syncope, hyponatremia, elevated blood sugar and vertigo. Pt states the only medical hx he is aware of was a syncopal event, wernickes, broken femur 2021 History of Any Multi-Drug Resistant Organisms: None Reported Past Surgical History: Hernia Repair Additional Past Surgical History / Comment(s): R inguinal hernia repair, femur repair 2021 Past Anesthesia/Blood Transfusion Reactions: No Reported Reaction Past Psychological History: No Psychological Hx Reported Additional Psychological History / Comment(s): Pt lives in an apartment alone. He states he drives. He uses no assistive device. Smoking Status: Current every day smoker Past Alcohol Use History: Daily, Heavy Additional Past Alcohol Use History / Comment(s): Pt states he started smoking as a teen and is a 3 ppd smoker. He states he drinks a 6 pack daily and last drank 3 days ago. Past Drug Use History: None Reported - Past Family History Father Family Medical History: No Reported History Mother Family Medical History: Diabetes Mellitus Additional Family Medical History / Comment(s): Brain Tumor Medications and Allergies Home Medications Medication Instructions Recorded Confirmed Type Aspirin 81 mg PO DAILY chew 05/14/17 04/30/22 Rx Albuterol Nebulized [Ventolin 2.5 mg INHALATION RT-QID 04/30/22 04/30/22 History Nebulized] Apixaban [Eliquis] 5 mg PO BID 04/30/22 04/30/22 History Budesonide [Pulmicort] 0.5 mg INHALATION RT-BID 04/30/22 04/30/22 History Cholecalciferol [Vitamin D3 (125 125 mcg PO DAILY 04/30/22 04/30/22 History Mcg = 5000 Iu)] Folic Acid 1 mg PO DAILY 04/30/22 04/30/22 History HYDROcodone/APAP 5-325MG [[place] 1 tab PO Q8H PRN 04/30/22 04/30/22 History 5-325] Losartan Potassium [Cozaar] 25 mg PO DAILY 04/30/22 04/30/22 History Metoprolol Tartrate [Lopressor] 25 mg PO TID@0500,1300,2100 04/30/22 04/30/22 History Multivitamins, Thera [Multivitamin 1 tab PO DAILY 04/30/22 04/30/22 History (formulary)] Omeprazole [PriLOSEC] 20 mg PO DAILY 04/30/22 04/30/22 History Ondansetron [Zofran] 4 mg PO Q8HR PRN 04/30/22 04/30/22 History Potassium Chloride ER [K-Dur 20] 20 meq PO DAILY 04/30/22 04/30/22 History Sennosides [Senokot] 8.6 mg PO BID@0800,1600 04/30/22 04/30/22 History Thiamine [Vitamin B-1] 100 mg PO DAILY 04/30/22 04/30/22 History dexAMETHasone 2 mg PO BID@0800,1600 04/30/22 04/30/22 History Allergies Allergy/AdvReac Type Severity Reaction Status Date / Time No Known Allergies Allergy Verified 04/30/22 18:56 Physical Exam Vitals: Vital Signs Temp Pulse Pulse Resp BP BP Pulse Ox 05/01/22 07:50 97.5 F L 61 17 97/65 96 05/01/22 01:31 97.7 F 76 16 115/78 94 L 04/30/22 20:00 97.5 F L 67 15 107/69 98 04/30/22 19:41 90 16 112/68 98 04/30/22 19:01 98.8 F 70 16 101/60 95 04/30/22 18:09 97.5 F L 67 16 107/69 04/30/22 18:00 98.8 F 90 20 110/60 96 04/30/22 15:09 97.4 F L 97 18 94/58 98 Intake and Output 04/30/22 05/01/22 05/01/22 22:59 06:59 14:59 Other: Voiding Method Diaper Incontinent Weight 81.647 kg Results CBC & Chem 7: 04/30/22 15:23 04/30/22 18:20 Labs: Abnormal Lab Results - Last 24 Hours (Table) 04/30/22 04/30/22 04/30/22 Range/Units 15:23 15:23 15:23 WBC 14.6 H (3.8-10.6) k/uL RBC 4.03 L (4.30-5.90) m/uL MCV 100.4 H (80.0-100.0) fL Neutrophils # (Manual) 12.70 H (1.3-7.7) k/uL Metamyelocytes # (Man) 0.15 H (0) k/uL Sodium 136 L (137-145) mmol/L Potassium 6.2 H* (3.5-5.1) mmol/L Chloride 109 H (98-107) mmol/L Carbon Dioxide 17 L (22-30) mmol/L BUN 71 H (9-20) mg/dL Glucose (74-99) mg/dL Total Protein 5.4 L (6.3-8.2) g/dL Albumin 2.8 L (3.5-5.0) g/dL Urine Protein 2+ H (Negative) Urine Blood Large H (Negative) Ur Leukocyte Esterase Large H (Negative) Urine RBC 122 H (0-5) /hpf Urine WBC >182 H (0-5) /hpf Urine WBC Clumps Occasional H (None) /hpf Uric Acid Crystals Few H (None) /hpf Urine Bacteria Occasional H (None) /hpf Hyaline Casts 4 H (0-2) /lpf Urine Mucus Rare H (None) /hpf Urine Yeast (Budding) Moderate H (None) /hpf 04/30/22 Range/Units 18:20 WBC (3.8-10.6) k/uL RBC (4.30-5.90) m/uL MCV (80.0-100.0) fL Neutrophils # (Manual) (1.3-7.7) k/uL Metamyelocytes # (Man) (0) k/uL Sodium 136 L (137-145) mmol/L Potassium 6.1 H* (3.5-5.1) mmol/L Chloride 108 H (98-107) mmol/L Carbon Dioxide 20 L (22-30) mmol/L BUN 73 H (9-20) mg/dL Glucose 120 H (74-99) mg/dL Total Protein (6.3-8.2) g/dL Albumin (3.5-5.0) g/dL Urine Protein (Negative) Urine Blood (Negative) Ur Leukocyte Esterase (Negative) Urine RBC (0-5) /hpf Urine WBC (0-5) /hpf Urine WBC Clumps (None) /hpf Uric Acid Crystals (None) /hpf Urine Bacteria (None) /hpf Hyaline Casts (0-2) /lpf Urine Mucus (None) /hpf Urine Yeast (Budding) (None) /hpf Thrombosis Risk Factor Assmnt - Choose All That Apply Other Risk Factors: Yes Each Risk Factor Represents 3 Points: Age 75 years or older Other congenital or acquired thrombophilia - If yes, enter type in comment: No Thrombosis Risk Factor Assessment Total Risk Factor Score: 3 Thrombosis Risk Factor Assessment Level: Moderate Risk
[2022-05-01] MEDS: SENNOSIDES 8.6 MG TAB PO SCH (16:53)
[2022-05-01] MEDS: SODIUM CHLORIDE 0.9% 1,000 ML IV SCH (16:54)
[2022-05-01] MEDS: IPRATROPIUM-ALBUTEROL 3 ML NEB INHALATION SCH (21:05)
[2022-05-02] MEDS: PIPERACILLIN-TAZOBACTAM 3.375 GM in SODIUM CHLORIDE 0.9% 100 ML IVPB SCH ×4 (00:29→23:17)
[2022-05-02] MEDS: PANTOPRAZOLE 40 MG TABLET PO SCH (09:26)
[2022-05-02] MEDS: METOPROLOL TARTRATE 25 MG TAB PO SCH ×3 (09:26→20:41)
[2022-05-02] MEDS: SODIUM CHLORIDE 0.9% 1,000 ML IV SCH ×2 (09:26→17:36)
[2022-05-02] MEDS: APIXABAN 5 MG TAB PO SCH ×2 (09:27→20:41)
[2022-05-02] MEDS: ASPIRIN 81 MG PO SCH (09:27)
[2022-05-02] MEDS: IPRATROPIUM-ALBUTEROL 3 ML NEB INHALATION SCH ×4 (09:27→20:09)
[2022-05-02] MEDS: SENNOSIDES 8.6 MG TAB PO SCH ×2 (09:27→17:36)
[2022-05-02] MEDS: FOLIC ACID 1 MG TAB PO SCH (09:27)
[2022-05-02] MEDS: MULTIVITAMINS, THERA 1 EACH TAB PO SCH (09:27)
[2022-05-02] MEDS: AZITHROMYCIN 500 MG in SODIUM CHLORIDE 0.9% 250 ML IVPB SCH (09:27)
[2022-05-02] MEDS: CHOLECALCIFEROL 125 MCG (5000 IU) TABLET PO SCH (09:27)
[2022-05-02] MEDS: dexAMETHasone 2 MG TAB PO SCH ×2 (09:27→17:36)
[2022-05-02] MEDS: BUDESONIDE 0.5 MG/2 ML NEBU INHALATION SCH ×2 (09:27→20:09)
[2022-05-02] MEDS: THIAMINE 100 MG TAB PO SCH (09:28)
[2022-05-02] MEDS: SODIUM ZIRCONIUM CYCLOSILICATE 10 GM PACKET PO SCH (09:28)
--- NOTE | 2022-05-02 17:57 | P.PN ---
Progress Note - Text Progress Note Date: 05/02/22 Chief Complaint: Cough This is a pleasant 77-year-old patient, follows with Dr. Rene Walden. Currently at resident of [facility]. Chronic stable medical conditions include atrial fibrillation, COPD, hypertension, recent repair of his femur at [facility]. Patient is at rehab currently at [facility]. Rather weak not really able to walk. Has a cough. Some phlegm. No fever no chills. Tired. Apparently the ECF patient was frustrated at the F and talked about killing himself. Patient admitted for pneumonia and also for psychiatry consultation. Patient's currently not feeling suicidal. Admitted with pneumonia. Element of metabolic encephalopathy. IV Zosyn. 05/02/2022: Some improvement in cough. On IV Zosyn. Gentle hydration. Oral intake variable. Laying in bed. Computer system down his labs not available. We'll follow Active Medications Hydrocodone Bitart/Acetaminophen (Hydrocodone/Apap 5-325mg 1 Each Tab) 1 each PO Q8H PRN PRN Reason: Pain Last Admin: 05/02/22 13:15 Dose: 1 each Albuterol/Ipratropium (Ipratropium-Albuterol 3 Ml Neb) 3 ml INHALATION RT-QID [facility] Last Admin: 05/02/22 15:43 Dose: 3 ml Apixaban (Apixaban 5 Mg Tab) 5 mg PO BID [facility]; Protocol Last Admin: 05/02/22 09:27 Dose: Not Given Aspirin (Aspirin 81 Mg) 81 mg PO DAILY [facility] Last Admin: 05/02/22 09:27 Dose: Not Given Budesonide (Budesonide 0.5 Mg/2 Ml Nebu) 0.5 mg INHALATION RT-BID [facility] Last Admin: 05/02/22 09:27 Dose: Not Given Cholecalciferol (Cholecalciferol 125 Mcg (5000 Iu) Tablet) 125 mcg PO DAILY [facility] Last Admin: 05/02/22 09:27 Dose: Not Given Dexamethasone (Dexamethasone 2 Mg Tab) 2 mg PO BID@0800,1600 [facility] Last Admin: 05/02/22 17:36 Dose: 2 mg Folic Acid (Folic Acid 1 Mg Tab) 1 mg PO DAILY [facility] Last Admin: 05/02/22 09:27 Dose: Not Given Piperacillin Sod/Tazobactam (Sod 3.375 gm/ Sodium Chloride) 100 mls @ 25 mls/hr IVPB Q8HR [facility]; Protocol Stop: 05/06/22 00:01 Last Admin: 05/02/22 17:36 Dose: 25 mls/hr Sodium Chloride (Saline 0.9%) 1,000 mls @ 75 mls/hr IV .[id number] [facility] Last Admin: 05/02/22 17:36 Dose: 75 mls/hr Metoprolol Tartrate (Metoprolol Tartrate 25 Mg Tab) 25 mg PO TID@0500,1300,2100 [facility] Last Admin: 05/02/22 12:45 Dose: Not Given Miscellaneous Information (Pneumonia Protocol Utilized 1 Each Misc) 1 each PO ONCE PRN PRN Reason: Per Protocol Multivitamins (Multivitamins, Thera 1 Each Tab) 1 each PO DAILY [facility] Last Admin: 05/02/22 09:27 Dose: Not Given Ondansetron HCl (Ondansetron 4 Mg Tab) 4 mg PO Q8HR PRN PRN Reason: Nausea Last Admin: 05/02/22 13:16 Dose: 4 mg Pantoprazole Sodium (Pantoprazole 40 Mg Tablet) 40 mg PO DAILY@0730 [facility] Last Admin: 05/02/22 09:26 Dose: Not Given Senna (Sennosides 8.6 Mg Tab) 8.6 mg PO BID@0800,1600 [facility] Last Admin: 05/02/22 17:36 Dose: 8.6 mg Thiamine HCl (Thiamine 100 Mg Tab) 100 mg PO DAILY [facility] Last Admin: 05/02/22 09:28 Dose: Not Given Social history: Currently at rehab at [facility]. Started smoking as a teen and 3 packs a day smoker up until very recently. Was drinking sixpack daily up to recently. Physical examination: VITAL SIGNS: 97.5, 68, 19, 92/54, 99% room air GENERAL: , laying in bed not in distress EYES: Pupils equal. Conjunctiva normal. HEENT: [External appearance of nose and ears normal, oral cavity missing dentition NECK: JVD not raised; masses not palpable. HEART: First and second heart sounds are normal; no edema. LUNGS: Respiratory rate increased; diminished breath sounds, coarse crackles. ABDOMEN: Soft, nontender, liver spleen not palpable, no masses palpable. PSYCH: [Able to answered simple questions mood and affect slightly low. MUSCULOSKELETAL:No Clubbing/cyanosis;muscles-grossly intact. Evidence of OA INVESTIGATIONS, reviewed in the clinical context: WBC 14.6 hemoglobin 13.4 platelets 251 sodium 136 potassium 6.1 bicarb 20 BUN 73 creatinine 0.97 albumin 2.8 COVID 19: Not detected Chest x-ray film patchy bilateral lower lobe pneumonia. Assessment and plan: -Pneumonia, suspect gram-negative organism IV Zosyn. Zithromax -COPD in a previous smoker DuoNeb, nebulized Pulmicort -Atrial fibrillation On Lopressor, eliquis -Essential hypertension Cozaar, Lopressor -Hyperkalemia Lokelma. Low potassium diet. -GERD Prilosec -Primary osteoarthritis multiple joints bilaterally. Recent femur surgery. [place] -Medical debility, patient has barely been walking. PTOT. -Patient commended about suicidal ideation. Consults psychiatry -Full code Continue current medications including antibiotics. Patient daughter wants the patient to be discharged to different ECF. Awaiting labs.
[2022-05-02 18:06] LABS: Basophils % (A) 0 %; Eosinophils % (A) 0 %; HCT 33.9 % (39.0-53.0); HGB 11.5 gm/dL (13.0-17.5); Lymphocytes # (A) 0.5 k/uL (1.0-4.8); Lymphocytes % (A) 6 %; MCH 34.5 pg (25.0-35.0); MCHC 33.8 g/dL (31.0-37.0); MCV 102.2 fL (80.0-100.0); Macrocytosis Slight; Mean Platelet Volume 9.3; Monocytes # (A) 0.2 k/uL (0-1.0); Monocytes % (A) 2 %; Neutrophils # (A) 8.2 k/uL (1.3-7.7); Neutrophils % (A) 91 %; Platelet Count 203 k/uL (150-450); RBC 3.32 m/uL (4.30-5.90); RDW 13.4 % (11.5-15.5)
[2022-05-02 18:08] LABS: African American GFR (CKD) >90 (>60 ml/min/1.73 sqM); Anion Gap 7 mmol/L; Blood Urea Nitrogen 43 mg/dL (9-20); Calcium 8.5 mg/dL (8.4-10.2); Carbon Dioxide 21 mmol/L (22-30); Chloride 109 mmol/L (98-107); Glucose 88 mg/dL (74-99); Non-African American GFR(CKD) 90 (>60 ml/min/1.73 sqM); Sodium 137 mmol/L (137-145)
[2022-05-02 18:23] LABS: Appearance,Urine Cloudy (Clear); Bacteria,Urine Rare /hpf; Bilirubin,Urine Negative (Negative); Blood,Urine Large (Negative); Color,Urine Light Red; Glucose,Urine (UA) 1+ (Negative); Ketones,Urine Negative (Negative); Leukocyte Esterase,Urine Large (Negative); Mucus,Urine Rare /hpf; Nitrite,Urine Negative (Negative); PH, Urine 5.5 (5.0-8.0); Protein,Urine 1+ (Negative); RBC,Urine >182 /hpf (0-5); Specific Gravity,Urine 1.024 (1.001-1.035); Urobilinogen,Urine <2.0 mg/dL (<2.0); WBC,Urine >182 /hpf (0-5)
[2022-05-03] MEDS: METOPROLOL TARTRATE 25 MG TAB PO SCH ×3 (07:09→21:11)
[2022-05-03] MEDS: PANTOPRAZOLE 40 MG TABLET PO SCH (07:09)
[2022-05-03] MEDS: BUDESONIDE 0.5 MG/2 ML NEBU INHALATION SCH ×2 (07:29→19:12)
[2022-05-03] MEDS: IPRATROPIUM-ALBUTEROL 3 ML NEB INHALATION SCH ×4 (07:29→19:12)
[2022-05-03] MEDS: CHOLECALCIFEROL 125 MCG (5000 IU) TABLET PO SCH (07:53)
[2022-05-03] MEDS: ASPIRIN 81 MG PO SCH (07:53)
[2022-05-03] MEDS: MULTIVITAMINS, THERA 1 EACH TAB PO SCH (07:53)
[2022-05-03] MEDS: PIPERACILLIN-TAZOBACTAM 3.375 GM in SODIUM CHLORIDE 0.9% 100 ML IVPB SCH ×2 (07:53→17:02)
[2022-05-03] MEDS: APIXABAN 5 MG TAB PO SCH ×2 (07:53→21:11)
[2022-05-03] MEDS: SENNOSIDES 8.6 MG TAB PO SCH ×2 (07:53→17:02)
[2022-05-03] MEDS: THIAMINE 100 MG TAB PO SCH (07:54)
[2022-05-03] MEDS: dexAMETHasone 2 MG TAB PO SCH ×2 (07:54→17:02)
[2022-05-03] MEDS: SODIUM CHLORIDE 0.9% 1,000 ML IV SCH ×2 (07:54→21:11)
[2022-05-03] MEDS: FOLIC ACID 1 MG TAB PO SCH (07:54)
[2022-05-03] MEDS ORDERED: LACTULOSE 20 GM/30 ML CUP PO ONE (19:04)
--- NOTE | 2022-05-03 19:28 | P.PN ---
Progress Note - Text Progress Note Date: 05/03/22 Chief Complaint: Cough I'm rounding for Rene Walden This is a pleasant 77-year-old patient, follows with Dr. Rene Walden. Currently at [facility]. Chronic stable medical conditions include atrial fibrillation, COPD, hypertension, recent repair of his femur at [facility]. Patient is at rehab currently at [facility]. Rather weak not really able to walk. Has a cough. Some phlegm. No fever no chills. Tired. Apparently the ECF patient was frustrated at the ECF and talked about killing himself. Patient admitted for pneumonia and also for psychiatry consultation. Patient's currently not feeling suicidal. Admitted with pneumonia. Element of metabolic encephalopathy. IV Zosyn. 05/02/2022: Some improvement in cough. On IV Zosyn. Gentle hydration. Oral intake variable. Laying in bed. Computer system down his labs not available. We'll follow 05/03/2022: Cough and breathing better. On IV Zosyn. Oral intake better. band shover to oral Augmentin. Active Medications Hydrocodone Bitart/Acetaminophen (Hydrocodone/Apap 5-325mg 1 Each Tab) 1 each PO Q8H PRN PRN Reason: Pain Last Admin: 05/02/22 13:15 Dose: 1 each Albuterol/Ipratropium (Ipratropium-Albuterol 3 Ml Neb) 3 ml INHALATION RT-QID [facility] Last Admin: 05/03/22 19:12 Dose: 3 ml Apixaban (Apixaban 5 Mg Tab) 5 mg PO BID [facility]; Protocol Last Admin: 05/03/22 07:53 Dose: 5 mg Aspirin (Aspirin 81 Mg) 81 mg PO DAILY [facility] Last Admin: 05/03/22 07:53 Dose: 81 mg Budesonide (Budesonide 0.5 Mg/2 Ml Nebu) 0.5 mg INHALATION RT-BID [facility] Last Admin: 05/03/22 19:12 Dose: 0.5 mg Cholecalciferol (Cholecalciferol 125 Mcg (5000 Iu) Tablet) 125 mcg PO DAILY [facility] Last Admin: 05/03/22 07:53 Dose: 125 mcg Dexamethasone (Dexamethasone 2 Mg Tab) 2 mg PO BID@0800,1600 [facility] Last Admin: 05/03/22 17:02 Dose: 2 mg Folic Acid (Folic Acid 1 Mg Tab) 1 mg PO DAILY [facility] Last Admin: 05/03/22 07:54 Dose: 1 mg Piperacillin Sod/Tazobactam (Sod 3.375 gm/ Sodium Chloride) 100 mls @ 25 mls/hr IVPB Q8HR [facility]; Protocol Stop: 05/06/22 00:01 Last Admin: 05/03/22 17:02 Dose: 25 mls/hr Sodium Chloride (Saline 0.9%) 1,000 mls @ 75 mls/hr IV .[id number] [facility] Last Admin: 05/03/22 07:54 Dose: 75 mls/hr Metoprolol Tartrate (Metoprolol Tartrate 25 Mg Tab) 25 mg PO TID@0500,1300,2100 [facility] Last Admin: 05/03/22 12:56 Dose: 25 mg Miscellaneous Information (Pneumonia Protocol Utilized 1 Each Misc) 1 each PO ONCE PRN PRN Reason: Per Protocol Multivitamins (Multivitamins, Thera 1 Each Tab) 1 each PO DAILY [facility] Last Admin: 05/03/22 07:53 Dose: 1 each Ondansetron HCl (Ondansetron 4 Mg Tab) 4 mg PO Q8HR PRN PRN Reason: Nausea Last Admin: 05/02/22 13:16 Dose: 4 mg Pantoprazole Sodium (Pantoprazole 40 Mg Tablet) 40 mg PO DAILY@0730 [facility] Last Admin: 05/03/22 07:09 Dose: 40 mg Senna (Sennosides 8.6 Mg Tab) 8.6 mg PO BID@0800,1600 [facility] Last Admin: 05/03/22 17:02 Dose: 8.6 mg Thiamine HCl (Thiamine 100 Mg Tab) 100 mg PO DAILY [facility] Last Admin: 05/03/22 07:54 Dose: 100 mg Social history: Currently at rehab at [facility]. Started smoking as a teen and 3 packs a day smoker up until very recently. Was drinking sixpack daily up to recently. Physical examination: VITAL SIGNS: 98.2, 65, 17, 98/64, 95% room air GENERAL: , laying in bed, looking better EYES: Pupils equal. Conjunctiva normal. HEENT: [External appearance of nose and ears normal, oral cavity missing dentition NECK: JVD not raised; masses not palpable. HEART: First and second heart sounds are normal; no edema. LUNGS: Respiratory rate normal; diminished breath sounds, ABDOMEN: Soft, nontender, liver spleen not palpable, no masses palpable. PSYCH: [Able to answered simple questions mood and affect slightly low. MUSCULOSKELETAL:No Clubbing/cyanosis;muscles-grossly intact. Evidence of OA INVESTIGATIONS, reviewed in the clinical context: WBC 14.6 hemoglobin 13.4 platelets 251 sodium 136 potassium 6.1 bicarb 20 BUN 73 creatinine 0.97 albumin 2.8 COVID 19: Not detected Chest x-ray film patchy bilateral lower lobe pneumonia. Assessment and plan: -Pneumonia, suspect gram-negative organism IV Zosyn. Zithromax -Acute metabolic encephalopathy from pneumonia on presentation Patient seen by psychiatry -COPD in a previous smoker DuoNeb, nebulized Pulmicort -Atrial fibrillation On Lopressor, eliquis -Essential hypertension Cozaar, Lopressor -Hyperkalemia Lokelma. Low potassium diet. -GERD Prilosec -Primary osteoarthritis multiple joints bilaterally. Recent femur surgery. [place] -Medical debility, patient has barely been walking. PTOT. -Full code Change of antibiotic in the morning to Augmentin. re[employer] asset manager looking into placement. Discussed with patient.
[2022-05-04] MEDS: PIPERACILLIN-TAZOBACTAM 3.375 GM in SODIUM CHLORIDE 0.9% 100 ML IVPB SCH ×4 (01:02→23:18)
[2022-05-04] MEDS: METOPROLOL TARTRATE 25 MG TAB PO SCH ×3 (04:54→20:07)
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
[2022-05-04] MEDS: CHOLECALCIFEROL 125 MCG (5000 IU) TABLET PO SCH (08:02)
[2022-05-04] MEDS: MULTIVITAMINS, THERA 1 EACH TAB PO SCH (08:02)
[2022-05-04] MEDS: ASPIRIN 81 MG PO SCH (08:02)
[2022-05-04] MEDS: SENNOSIDES 8.6 MG TAB PO SCH ×2 (08:03→17:25)
[2022-05-04] MEDS: FOLIC ACID 1 MG TAB PO SCH (08:03)
[2022-05-04] MEDS: THIAMINE 100 MG TAB PO SCH (08:03)
[2022-05-04] MEDS: APIXABAN 5 MG TAB PO SCH ×2 (08:03→20:07)
[2022-05-04] MEDS: dexAMETHasone 2 MG TAB PO SCH ×2 (08:03→17:25)
[2022-05-04] MEDS: PANTOPRAZOLE 40 MG TABLET PO SCH (08:03)
[2022-05-04] MEDS: BUDESONIDE 0.5 MG/2 ML NEBU INHALATION SCH ×2 (08:21→19:38)
[2022-05-04] MEDS: IPRATROPIUM-ALBUTEROL 3 ML NEB INHALATION SCH ×4 (08:21→19:38)
[2022-05-04] MEDS: SODIUM CHLORIDE 0.9% 1,000 ML IV SCH (09:07)
[2022-05-04] MEDS ORDERED: DILTIAZEM ORAL 60 MG TAB PO STA (17:13)
[2022-05-05] MEDS: SODIUM CHLORIDE 0.9% 1,000 ML IV SCH ×2 (01:37→18:42)
[2022-05-05] MEDS: METOPROLOL TARTRATE 25 MG TAB PO SCH (05:21)
[2022-05-05] MEDS: PANTOPRAZOLE 40 MG TABLET PO SCH (05:21)
[2022-05-05] MEDS: IPRATROPIUM-ALBUTEROL 3 ML NEB INHALATION SCH ×4 (07:35→19:49)
[2022-05-05] MEDS: BUDESONIDE 0.5 MG/2 ML NEBU INHALATION SCH ×2 (07:35→19:49)
[2022-05-05] MEDS: PIPERACILLIN-TAZOBACTAM 3.375 GM in SODIUM CHLORIDE 0.9% 100 ML IVPB SCH ×2 (08:11→16:36)
[2022-05-05] MEDS: CHOLECALCIFEROL 125 MCG (5000 IU) TABLET PO SCH (08:12)
[2022-05-05] MEDS: THIAMINE 100 MG TAB PO SCH (08:12)
[2022-05-05] MEDS: APIXABAN 5 MG TAB PO SCH ×2 (08:12→19:51)
[2022-05-05] MEDS: ASPIRIN 81 MG PO SCH (08:12)
[2022-05-05] MEDS: SENNOSIDES 8.6 MG TAB PO SCH ×2 (08:12→16:36)
[2022-05-05] MEDS: FOLIC ACID 1 MG TAB PO SCH (08:12)
[2022-05-05] MEDS: MULTIVITAMINS, THERA 1 EACH TAB PO SCH (08:12)
[2022-05-05] MEDS: dexAMETHasone 2 MG TAB PO SCH ×2 (08:12→16:36)
[2022-05-05] MEDS ORDERED: METOPROLOL TARTRATE 25 MG TAB PO STA (08:16)
--- NOTE | 2022-05-05 12:45 | CA ---
Transthoracic Echo Report Name: Kosta Lantigua Age: 77 Gender: M : 1945 Exam Date: 05/05/2022 09:00 Exam Location: [facility] Ht (in): 70 Wt (lb): 180 Ordering Physician: Kajal Rodriguez Attending/Referring Phys: Re Dye Hand Pamela Fuentes RDCS Procedure CPT: Indications: a fib Cardiac Hx: Technical Quality: Fair Contrast 1: Total Dose (mL): Contrast 2: Total Dose (mL): MEASUREMENTS (Male / Female) Normal Values 2D ECHO LV Diastolic Diameter PLAX 4.0 cm 4.2 - 5.9 / 3.9 - 5.3 cm LV Systolic Diameter PLAX 2.2 cm IVS Diastolic Thickness 1.3 cm 0.6 - 1.0 / 0.6 - 0.9 cm LVPW Diastolic Thickness 1.3 cm 0.6 - 1.0 / 0.6 - 0.9 cm LV Relative Wall Thickness 0.7 RV Internal Dim ED PLAX 2.1 cm LA Systolic Diameter LX 2.5 cm 3.0 - 4.0 / 2.7 - 3.8 cm M-MODE Aortic Root Diameter MM 2.9 cm MV E Point Septal Separation 1.0 cm AV Cusp Separation MM 1.8 cm DOPPLER AV Peak Velocity 79.6 cm/s AV Peak Gradient 2.5 mmHg MV Area PHT 3.1 cm??? MV Deceleration Time 198.6 ms TR Peak Velocity 261.3 cm/s TR Peak Gradient 27.3 mmHg Right Ventricular Systolic Press 42.3 mmHg FINDINGS Left Ventricle Left ventricular ejection fraction is estimated at 40-45 %. Left ventricular cavity size normal. Moderate concentric left ventricular hypertrophy. Right Ventricle Normal right ventricular size and function. Mild pulmonary hypertension. Right Atrium Normal right atrial size. Left Atrium Small left atrial cavity. No evidence for an atrial septal defect. Mitral Valve Mitral annular calcification. No mitral stenosis, regurgitation or prolapse. Aortic Valve Trileaflet aortic valve. No aortic valve stenosis or regurgitation. Tricuspid Valve Mild tricuspid regurgitation. Pulmonic Valve Mild pulmonic regurgitation. Pericardium Normal pericardium. No pericardial effusion. Aorta Normal size aortic root and proximal ascending aorta. CONCLUSIONS Mildly impaired only function was EF between 40-45% Previewed by: Dr. Archie Rick MD (Electronically Signed) Final Date: 05 May 2022 12:44
--- NOTE | 2022-05-05 13:41 | P.CRDCN ---
History of Present Illness History of present illness: This is a 77 year old male with a past medical history of paroxysmal atrial fibrillation on Eliquis, chronic nicotine dependence, COPD, hypertension, recent repair of his femur at [facility]. Patient is a poor historian, unclear if he follows with a club former. Patient is at rehab currently at [facility]. We are consulted for A fib with RVR. Patient presented to the [facility] on 04/30/2022 from [facility] for suicidal ideation. Apparently the ECF patient was frustrated at the ECF and talked about killing himself. He also is being treated for UTI and possible pneumonia. He was initially on a medicine unit but went into A fib with RVR with HR 160s Yesterday. Primary team was notified and new orders for one time po 60mg of cardizem and patient was transferred to 3S/cardiac step down unit. He is seen and examined at bedside, no acute distress. Denies any shortness of breath, chest pain or palpitations. He is lying flat comfortably in bed, euvolemic on exam. He is tachycardic on telemetry, HR 100-130s. He has no complaints this morning. DIAGNOSTICS * EKG reveals atrial fibrillation with heart rate of 102, nonspecific ST -T wave abnormalities. * Echocardiogram revealed EF 40-45%, mild LVH, mild tricuspid regurgitation * Telemetry tracings indicate atrial fibrillation with heart rates in the 90s/low 100s * Chest xray some patchy bilateral lobe pneumonia * Laboratory reviewed, proBNP 612, sodium 137, potassium 4.0, BUN 43, serum creatinine 0.7, WBC 9.0, hemoglobin 11.5, platelets 203 * Echocardiogram in 2017 revealed EF 55%, mild mitral regurgitation * Current home cardiac medications include metoprolol titrate 25 mg 3 times a day, Eliquis 5 mg twice a day, losartan 25 mg daily, aspirin 81 mg daily REVIEW OF SYSTEMS At the time of my exam: CONSTITUTIONAL: Denies fever or chills. CARDIOVASCULAR: Denies chest pain, shortness of breath, orthopnea, PND or pa lpitations. RESPIRATORY: Denies cough. GASTROINTESTINAL: Denies abdominal pain, diarrhea, constipation, nausea or vomiting. MUSCULOSKELETAL: Denies myalgias. NEUROLOGIC: Denies numbness, tingling, headacbe or weakness. ENDOCRINE: Denies fatigue, weight change, polydipsia or polyurina. GENITOURINARY: Denies burning, hematuria or urgency with micturation. HEMATOLOGIC: Denies history of anemia or bleeding. PHYSICAL EXAMINATION Blood pressure 129/63, heart rate 109, afebrile, saturations 97% on room air CONSTITUTIONAL: No apparent distress. HEENT: Head is normocephalic. Pupils are equal, round. Sclerae anicteric. Mucous membranes of the mouth are dry. No JVD. No carotid bruit. CHEST EXAMINATION: Lungs are clear to auscultation. No chest wall tenderness is noted on palpation or with deep breathing. HEART EXAMINATION: Irregular rate and rhythm. S1, S2 heard. Systolic murmur at apex, gallops or rub. ABDOMEN: Soft, nontender. Positive bowel sounds. EXTREMITIES: 2+ peripheral pulses, no lower extremity edema and no calf tenderness. NEUROLOGIC EXAMINATION: Patient is awake,alert oriented x 2 ASSESSMENT Paroxysmal atrial fibrillation with RVR, on Eliquis UTI Possible pneumonia Hyperkalemia, improved History of COPD Hypertension PLAN Increase metoprolol to 50mg BID Continue anticoagulation with Eliquis Rest of management per primary Further recommendations based on clinical course Nurse practitioner note has been reviewed by physician. Signing provider agrees with the documented findings, assessment, and plan of care. Past Medical History Past Medical History: Hypertension Additional Past Medical History / Comment(s): Pt is a somewhat poor historian. HTN per daughter, but does not take his medications. In 2008 pt admitted to [facility] with severe sinusitis/mastoiditis, syncope, hyponatremia, elevated blood sugar and vertigo. Pt states the only medical hx he is aware of was a syncopal event. History of Any Multi-Drug Resistant Organisms: None Reported Past Surgical History: Hernia Repair Additional Past Surgical History / Comment(s): R inguinal hernia repair. Past Anesthesia/Blood Transfusion Reactions: No Reported Reaction Past Psychological History: No Psychological Hx Reported Past Alcohol Use History: Daily, Heavy Past Drug Use History: None Reported - Past Family History Father Family Medical History: No Reported History Mother Family Medical History: Diabetes Mellitus Additional Family Medical History / Comment(s): Brain Tumor Medications and Allergies Home Medications Medication Instructions Recorded Confirmed Type Aspirin 81 mg PO DAILY chew 05/14/17 04/30/22 Rx Albuterol Nebulized [Ventolin 2.5 mg INHALATION RT-QID 04/30/22 04/30/22 History Nebulized] Apixaban [Eliquis] 5 mg PO BID 04/30/22 04/30/22 History Budesonide [Pulmicort] 0.5 mg INHALATION RT-BID 04/30/22 04/30/22 History Cholecalciferol [Vitamin D3 (125 125 mcg PO DAILY 04/30/22 04/30/22 History Mcg = 5000 Iu)] Folic Acid 1 mg PO DAILY 04/30/22 04/30/22 History HYDROcodone/APAP 5-325MG [[place] 1 tab PO Q8H PRN 04/30/22 04/30/22 History 5-325] Losartan Potassium [Cozaar] 25 mg PO DAILY 04/30/22 04/30/22 History Metoprolol Tartrate [Lopressor] 25 mg PO TID@0500,1300,2100 04/30/22 04/30/22 History Multivitamins, Thera [Multivitamin 1 tab PO DAILY 04/30/22 04/30/22 History (formulary)] Omeprazole [PriLOSEC] 20 mg PO DAILY 04/30/22 04/30/22 History Ondansetron [Zofran] 4 mg PO Q8HR PRN 04/30/22 04/30/22 History Potassium Chloride ER [K-Dur 20] 20 meq PO DAILY 04/30/22 04/30/22 History Sennosides [Senokot] 8.6 mg PO BID@0800,1600 04/30/22 04/30/22 History Thiamine [Vitamin B-1] 100 mg PO DAILY 04/30/22 04/30/22 History dexAMETHasone 2 mg PO BID@0800,1600 04/30/22 04/30/22 History Allergies Allergy/AdvReac Type Severity Reaction Status Date / Time No Known Allergies Allergy Verified 04/30/22 18:56 Physical Exam Vitals: Vital Signs Temp Pulse Pulse Pulse Resp BP Pulse Ox 05/05/22 07:49 80 05/05/22 07:35 80 05/05/22 04:00 97.6 F 111 H 19 117/71 97 05/05/22 00:00 97.4 F L 95 20 122/78 96 05/04/22 20:00 97.3 F L 144 H 20 105/74 99 05/04/22 19:52 84 05/04/22 19:38 81 97 05/04/22 18:11 124 H 18 05/04/22 15:53 88 05/04/22 15:43 88 05/04/22 14:00 96 F L 61 18 102/61 95 05/04/22 11:34 92 05/04/22 11:25 88 05/04/22 08:36 80 05/04/22 08:21 80 FiO2 05/05/22 07:49 05/05/22 07:35 05/05/22 04:00 05/05/22 00:00 05/04/22 20:00 05/04/22 19:52 05/04/22 19:38 21 05/04/22 18:11 05/04/22 15:53 05/04/22 15:43 05/04/22 14:00 05/04/22 11:34 05/04/22 11:25 05/04/22 08:36 05/04/22 08:21 Intake and Output 05/04/22 05/05/22 05/05/22 22:59 06:59 14:59 Intake Total 10 Output Total 500 750 Balance -490 -750 Intake: IV 10 Invasive Line 2 10 Output: Urine 500 750 Straight 750 Other: Voiding Method External Catheter External Catheter # Bowel Movements 1 Results 05/02/22 07:15 05/02/22 07:15 Current Medications Generic Name Dose Route Start Last Admin Trade Name Freq PRN Reason Stop Dose Admin Hydrocodone Bitart/Acetaminophen 1 each 05/01/22 10:00 05/02/22 13:15 Hydrocodone/Apap 5-325mg 1 Each Tab PO 1 each Q8H PRN Administration Pain Albuterol/Ipratropium 3 ml 05/01/22 20:00 05/05/22 07:35 Ipratropium-Albuterol 3 Ml Neb INHALATION 3 ml RT-QID GURWINDER Administration Apixaban 5 mg 05/01/22 10:15 05/05/22 08:12 Apixaban 5 Mg Tab PO 5 mg BID GURWINDER Administration Protocol Aspirin 81 mg 05/01/22 10:15 05/05/22 08:12 Aspirin 81 Mg PO 81 mg DAILY GURWINDER Administration Budesonide 0.5 mg 05/01/22 10:00 05/05/22 07:35 Budesonide 0.5 Mg/2 Ml Nebu INHALATION 0.5 mg RT-BID GURWINDER Administration Cholecalciferol 125 mcg 05/02/22 09:00 05/05/22 08:12 Cholecalciferol 125 Mcg (5000 Iu) Tablet PO 125 mcg DAILY GURWINDER Administration Dexamethasone 2 mg 05/01/22 10:00 05/05/22 08:12 Dexamethasone 2 Mg Tab PO 2 mg BID@0800,1600 GURWINDER Administration Folic Acid 1 mg 05/02/22 09:00 05/05/22 08:12 Folic Acid 1 Mg Tab PO 1 mg DAILY GURWINDER Administration Piperacillin Sod/Tazobactam 100 mls @ 25 mls/hr 05/01/22 00:00 05/05/22 08:11 Sod 3.375 gm/ Sodium Chloride IVPB 05/06/22 00:01 25 mls/hr Q8HR GURWINDER Administration Protocol Sodium Chloride 1,000 mls @ 75 mls/hr 05/01/22 16:15 05/05/22 01:37 Saline 0.9% IV 75 mls/hr .[id number] GURWINDER Administration Metoprolol Tartrate 25 mg 05/05/22 08:16 Metoprolol Tartrate 25 Mg Tab PO 05/05/22 08:17 ONCE STA Metoprolol Tartrate 50 mg 05/05/22 21:00 Metoprolol Tartrate 50 Mg Tab PO BID [facility] Miscellaneous Information 1 each 04/30/22 17:40 Pneumonia Protocol Utilized 1 Each Misc PO ONCE PRN Per Protocol Multivitamins 1 each 05/01/22 10:15 05/05/22 08:12 Multivitamins, Thera 1 Each Tab PO 1 each DAILY GURWINDER Administration Ondansetron HCl 4 mg 05/01/22 10:00 05/02/22 13:16 Ondansetron 4 Mg Tab PO 4 mg Q8HR PRN Administration Nausea Pantoprazole Sodium 40 mg 05/01/22 10:15 05/05/22 05:21 Pantoprazole 40 Mg Tablet PO 40 mg DAILY@0730 GURWINDER Administration Senna 8.6 mg 05/01/22 16:00 05/05/22 08:12 Sennosides 8.6 Mg Tab PO 8.6 mg BID@0800,1600 GURWINDER Administration Thiamine HCl 100 mg 05/01/22 10:15 05/05/22 08:12 Thiamine 100 Mg Tab PO 100 mg DAILY GURWINDER Administration Intake and Output 05/04/22 05/05/22 05/05/22 22:59 06:59 14:59 Intake Total 10 Output Total 500 750 Balance -490 -750 Intake: IV 10 Invasive Line 2 10 Output: Urine 500 750 Straight 750 Other: Voiding Method External Catheter External Catheter # Bowel Movements 1 05/02/22 07:15 05/02/22 07:15
[2022-05-05 14:00] VITALS: BMI 25.8
[2022-05-05] MEDS: TAMSULOSIN 0.4 MG CAP.ER.24H PO SCH (18:42)
[2022-05-05] MEDS: METOPROLOL TARTRATE 50 MG TAB PO SCH (19:51)
[2022-05-06] MEDS: PIPERACILLIN-TAZOBACTAM 3.375 GM in SODIUM CHLORIDE 0.9% 100 ML IVPB SCH (00:35)
[2022-05-06] MEDS: SODIUM CHLORIDE 0.9% 1,000 ML IV SCH ×2 (03:15→21:48)
[2022-05-06] MEDS: PANTOPRAZOLE 40 MG TABLET PO SCH (06:10)
[2022-05-06] MEDS: IPRATROPIUM-ALBUTEROL 3 ML NEB INHALATION SCH ×4 (07:52→20:35)
[2022-05-06] MEDS: BUDESONIDE 0.5 MG/2 ML NEBU INHALATION SCH ×2 (07:52→20:35)
--- NOTE | 2022-05-06 07:58 | PN ---
PROGRESS NOTE DATE OF SERVICE: 05/04/2022 SUBJECTIVE: A 77-year-old white male SVT versus atrial fibrillation with RVR. cardiology consult, transfer to telemetry floor. Please see further orders. PHYSICAL EXAMINATION: CARDIOVASCULAR: Irregularly regular rhythm. LUNGS: Clear. PSYCH: Pleasantly confused. HEMATOLOGY: Negative Homans. ASSESSMENT: , urinary tract infection, atrial fibrillation, rapid ventricular response versus supraventricular tachycardia, chronic obstructive pulmonary disease, status post COVID, COVID encephalopathy. Continue current treatments. Give him Cardizem 60 mg dose. Continue his beta blockers. Wait for Cardiology consult. MMODL / IJN: [id number] /
[2022-05-06] MEDS: dexAMETHasone 2 MG TAB PO SCH ×2 (08:19→16:44)
[2022-05-06] MEDS: ASPIRIN 81 MG PO SCH (08:19)
[2022-05-06] MEDS: METOPROLOL TARTRATE 50 MG TAB PO SCH ×2 (08:19→21:44)
[2022-05-06] MEDS: THIAMINE 100 MG TAB PO SCH (08:19)
[2022-05-06] MEDS: TAMSULOSIN 0.4 MG CAP.ER.24H PO SCH (08:19)
[2022-05-06] MEDS: MULTIVITAMINS, THERA 1 EACH TAB PO SCH (08:19)
[2022-05-06] MEDS: SENNOSIDES 8.6 MG TAB PO SCH ×2 (08:19→16:44)
[2022-05-06] MEDS: FOLIC ACID 1 MG TAB PO SCH (08:19)
[2022-05-06] MEDS: APIXABAN 5 MG TAB PO SCH ×2 (08:19→21:44)
[2022-05-06] MEDS: CHOLECALCIFEROL 125 MCG (5000 IU) TABLET PO SCH (08:20)
--- NOTE | 2022-05-06 09:13 | P.PN ---
Subjective This is a 77 year old male with a past medical history of paroxysmal atrial fibrillation on Eliquis, chronic nicotine dependence, COPD, hypertension, recent repair of his femur at [facility]. Patient is a poor historian, unclear if he follows with a pediatric psychologist. Patient is at rehab currently at [facility]. We are consulted for A fib with RVR. Patient presented to the Hospital on 04/30/2022 from [facility] for suicidal ideation. Apparently the ECF patient was frustrated at the ECF and talked about killing himself. He also is being treated for UTI and possible pneumonia. He was initially on a medicine unit but went into A fib with RVR with HR 160s Yesterday. Primary team was notified and new orders for one time po 60mg of cardizem and patient was transferred to /cardiac step down unit. He is seen and examined at bedside, no acute distress. Denies any shortness of breath, chest pain or palpitations. He is lying flat comfortably in bed, euvolemic on exam. He is tachycardic on telemetry, HR 100-130s. He has no complaints this morning. DIAGNOSTICS * Echocardiogram revealed EF 40-45%, mild LVH, mild tricuspid regurgitation * Echocardiogram in 2017 revealed EF 55%, mild mitral regurgitation 05/05/2022 Patient seen and examined at bedside, no acute events overnight. BP is stable. 131/64. Continues to be slightly tachycardic HR 90s-130s this morning. PHYSICAL EXAMINATION Vitals reviewed CONSTITUTIONAL: No apparent distress. HEENT: Head is normocephalic. Neck Supple No JVD. CHEST EXAMINATION: Lungs are clear to auscultation. No chest wall tenderness is noted on palpation or with deep breathing. HEART EXAMINATION: Irregular rate and rhythm. S1, S2 heard. Systolic murmur at apex, gallops or rub. ABDOMEN: Soft, nontender. Positive bowel sounds. EXTREMITIES: 2+ peripheral pulses, no lower extremity edema and no calf tenderness. NEUROLOGIC EXAMINATION: Patient is awake,alert oriented x 2 ASSESSMENT Paroxysmal atrial fibrillation with RVR, on Eliquis UTI Possible pneumonia Hyperkalemia, improved History of COPD Hypertension PLAN Increase metoprolol to 75mg BID Continue anticoagulation with Eliquis Continue cardiac telemetry Rest of management per primary Further recommendations based on clinical course Nurse practitioner note has been reviewed by physician. Signing provider agrees with the documented findings, assessment, and plan of care. Objective - Vital Signs Vital signs: Vital Signs Temp 98.1 F 05/06/22 08:21 Pulse 120 H 05/06/22 08:42 Resp 18 05/06/22 08:21 BP 131/64 05/06/22 08:21 Pulse Ox 94 L 05/06/22 08:21 FiO2 21 05/05/22 19:00 Intake & Output 05/05/22 05/06/22 05/06/22 18:59 06:59 18:59 Intake Total 1299 360 Output Total 530 Balance 769 360 Weight 81.647 kg Intake: IV 10 Invasive Line 3 10 Intake, IV Titration 925 Amount Piperacillin-Tazobactam 3 100 .375 gm In Sodium Chloride 0.9% 100 ml @ 25 mls/hr IVPB Q8HR [facility] Rx# :[id number] Sodium Chloride 0.9% 1, 825 000 ml @ 75 mls/hr IV . [id number] [facility] Rx#:[id number] Oral 364 360 Output: Urine 530 Other: # Voids 1 - Labs CBC & Chem 7: 05/02/22 07:15 05/02/22 07:15 Labs: Microbiology - Last 24 Hours (Table) 04/30/22 18:35 Blood Culture - Preliminary Blood No Growth after 120 hours 04/30/22 18:20 Blood Culture - Preliminary Blood No Growth after 120 hours
[2022-05-06] MEDS ORDERED: METOPROLOL TARTRATE 25 MG TAB PO STA (11:55)
--- NOTE | 2022-05-06 21:17 | P.GSCN ---
History of Present Illness Consult date: 05/06/22 Reason for Consult: urinary retention History of present illness: This is a 77 yo male admitted to the hospital with pneumonia. Urology is con sulted for urinary retention. PVR was check last night at it was elevated at 750 mL, repeat PVR this am was 150 mL. patient is poor historian, but no know voiding issues at baseline. no previous know hx of retention. Denies any abdominal pain, dysuria or gross hematuri Review of Systems ROS unobtainable: due to mental status Past Medical History Past Medical History: Hypertension Additional Past Medical History / Comment(s): Pt is a somewhat poor historian. HTN per daughter, but does not take his medications. In 2008 pt admitted to [facility] with severe sinusitis/mastoiditis, syncope, hyponatremia, elevated blood sugar and vertigo. Pt states the only medical hx he is aware of was a syncopal event. History of Any Multi-Drug Resistant Organisms: None Reported Past Surgical History: Hernia Repair Additional Past Surgical History / Comment(s): R inguinal hernia repair. Past Anesthesia/Blood Transfusion Reactions: No Reported Reaction Past Psychological History: No Psychological Hx Reported Past Alcohol Use History: Daily, Heavy Past Drug Use History: None Reported - Past Family History Father Family Medical History: No Reported History Mother Family Medical History: Diabetes Mellitus Additional Family Medical History / Comment(s): Brain Tumor Medications and Allergies Home Medications Medication Instructions Recorded Confirmed Type Aspirin 81 mg PO DAILY chew 05/14/17 04/30/22 Rx Albuterol Nebulized [Ventolin 2.5 mg INHALATION RT-QID 04/30/22 04/30/22 History Nebulized] Apixaban [Eliquis] 5 mg PO BID 04/30/22 04/30/22 History Budesonide [Pulmicort] 0.5 mg INHALATION RT-BID 04/30/22 04/30/22 History Cholecalciferol [Vitamin D3 (125 125 mcg PO DAILY 04/30/22 04/30/22 History Mcg = 5000 Iu)] Folic Acid 1 mg PO DAILY 04/30/22 04/30/22 History HYDROcodone/APAP 5-325MG [Adamant 1 tab PO Q8H PRN 04/30/22 04/30/22 History 5-325] Losartan Potassium [Cozaar] 25 mg PO DAILY 04/30/22 04/30/22 History Metoprolol Tartrate [Lopressor] 25 mg PO TID@0500,1300,2100 04/30/22 04/30/22 History Multivitamins, Thera [Multivitamin 1 tab PO DAILY 04/30/22 04/30/22 History (formulary)] Omeprazole [PriLOSEC] 20 mg PO DAILY 04/30/22 04/30/22 History Ondansetron [Zofran] 4 mg PO Q8HR PRN 04/30/22 04/30/22 History Potassium Chloride ER [K-Dur 20] 20 meq PO DAILY 04/30/22 04/30/22 History Sennosides [Senokot] 8.6 mg PO BID@0800,1600 04/30/22 04/30/22 History Thiamine [Vitamin B-1] 100 mg PO DAILY 04/30/22 04/30/22 History dexAMETHasone 2 mg PO BID@0800,1600 04/30/22 04/30/22 History Allergies Allergy/AdvReac Type Severity Reaction Status Date / Time No Known Allergies Allergy Verified 04/30/22 18:56 Surgical - Exam Vital Signs Temp Pulse Resp BP Pulse Ox 97.4 F L 97 18 94/58 98 04/30/22 15:09 04/30/22 15:09 04/30/22 15:09 04/30/22 15:09 04/30/22 15:09 - General no distress, no pain - Eyes normal ocular movement, no pale - ENT normal nares, normal mucosa - Respiratory normal expansion, normal respiratory effort - Abdomen Abdomen: soft, non tender Results - Labs 05/02/22 07:15 05/02/22 07:15 Microbiology - Last 24 Hours (Table) 04/30/22 18:35 Blood Culture - Final Blood No Growth after 144 hours 04/30/22 18:20 Blood Culture - Final Blood No Growth after 144 hours Assessment and Plan Assessment: 77 yo admitted to the hospital with pneumonia urology is counsulted for urinary retention. inital PVR was 750 mL, PVR improved to 150 mL this am. He is asymptomatic. discussed given improved PVR no need to place mina catheter, at this time recommend continued to observe PVR and continue flomax. can place mina catheter if PVR > 400 mL
--- NOTE | 2022-05-06 23:07 | PN ---
PROGRESS NOTE SUBJECTIVE: A 77-year-old white male with PNA, UTI, dyspnea, atrial fibrillation, RVR. Cardiology has been trying to stabilize his atrial fibrillation. He is on Eliquis for blood thinner. DVT and PE and stroke prophylaxis due to atrial fibrillation. He is on Lopressor for rate control, Protonix for GERD control, Flomax for urinary retention. The patient wants to get out of here and go home. PHYSICAL EXAMINATION: VITAL SIGNS: Pulse rate is in the low 100s, O2 of 97% on room air, temp 97, pulse 115. CARDIOVASCULAR: S1, S2. Irregularly irregular rhythm. PSYCH: Pleasantly confused. LUNGS: Clear. LABS: White count 9, hemoglobin is 11.5, sodium 137, potassium 4.0. BNP 612. UA shows large white cells, red cells, leukocyte esterase. PLAN: Broad-spectrum antibiotics. Wait for urine culture. Discharge home and family will take him soon. MMODL / IJN: [id number] /
[2022-05-07] MEDS: SODIUM CHLORIDE 0.9% 1,000 ML IV SCH ×2 (05:40→06:17)
[2022-05-07] MEDS: PANTOPRAZOLE 40 MG TABLET PO SCH (06:16)
[2022-05-07] MEDS: dexAMETHasone 2 MG TAB PO SCH ×2 (08:10→16:46)
[2022-05-07] MEDS: THIAMINE 100 MG TAB PO SCH (08:10)
[2022-05-07] MEDS: METOPROLOL TARTRATE 50 MG TAB PO SCH (08:10)
[2022-05-07] MEDS: TAMSULOSIN 0.4 MG CAP.ER.24H PO SCH (08:10)
[2022-05-07] MEDS: SENNOSIDES 8.6 MG TAB PO SCH ×2 (08:10→16:46)
[2022-05-07] MEDS: MULTIVITAMINS, THERA 1 EACH TAB PO SCH (08:10)
[2022-05-07] MEDS: ASPIRIN 81 MG PO SCH (08:10)
[2022-05-07] MEDS: APIXABAN 5 MG TAB PO SCH ×2 (08:10→20:18)
[2022-05-07] MEDS: FOLIC ACID 1 MG TAB PO SCH (08:11)
[2022-05-07] MEDS: CHOLECALCIFEROL 125 MCG (5000 IU) TABLET PO SCH (08:11)
[2022-05-07 08:36] LABS: Basophils % (A) 0 %; Eosinophils % (A) 0 %; HCT 34.8 % (39.0-53.0); HGB 11.8 gm/dL (13.0-17.5); Lymphocytes # (A) 1.1 k/uL (1.0-4.8); Lymphocytes % (A) 9 %; MCH 33.7 pg (25.0-35.0); MCHC 33.9 g/dL (31.0-37.0); MCV 99.6 fL (80.0-100.0); Macrocytosis Slight; Mean Platelet Volume 8.7; Monocytes # (A) 0.4 k/uL (0-1.0); Monocytes % (A) 3 %; Neutrophils # (A) 11.1 k/uL (1.3-7.7); Neutrophils % (A) 87 %; Platelet Count 196 k/uL (150-450); RBC 3.49 m/uL (4.30-5.90); RDW 14.5 % (11.5-15.5); WBC 12.7 k/uL (3.8-10.6)
[2022-05-07 08:50] LABS: ALT 30 U/L (4-49); AST 39 U/L (17-59); African American GFR (CKD) >90 (>60 ml/min/1.73 sqM); Albumin 2.4 g/dL (3.5-5.0); Alkaline Phosphatase 75 U/L (38-126); Anion Gap 3 mmol/L; Blood Urea Nitrogen 24 mg/dL (9-20); Calcium 8.3 mg/dL (8.4-10.2); Carbon Dioxide 20 mmol/L (22-30); Chloride 118 mmol/L (98-107); Glucose 90 mg/dL (74-99); Non-African American GFR(CKD) >90 (>60 ml/min/1.73 sqM); Potassium 3.5 mmol/L (3.5-5.1); Sodium 141 mmol/L (137-145); Total Bilirubin 0.6 mg/dL (0.2-1.3); Total Protein 4.7 g/dL (6.3-8.2)
[2022-05-07] MEDS: BUDESONIDE 0.5 MG/2 ML NEBU INHALATION SCH ×2 (09:05→19:50)
[2022-05-07] MEDS: IPRATROPIUM-ALBUTEROL 3 ML NEB INHALATION SCH ×5 (09:06→19:50)
--- NOTE | 2022-05-07 09:18 | P.PN ---
Subjective This is a 77 year old male with a past medical history of paroxysmal atrial fibrillation on Eliquis, chronic nicotine dependence, COPD, hypertension, recent repair of his femur at [facility]. Patient is a poor historian, unclear if he follows with a polisher and buffer. Patient is at rehab currently at [facility]. We are consulted for A fib with RVR. Patient presented to the Hospital on 04/30/2022 from [facility] for suicidal ideation. Apparently the ECF patient was frustrated at the ECF and talked about killing himself. He also is being treated for UTI and possible pneumonia. He was initially on a medicine unit but went into A fib with RVR with HR 160s Yesterday. Primary team was notified and new orders for one time po 60mg of cardizem and patient was transferred to /cardiac step down unit. He is seen and examined at bedside, no acute distress. Denies any shortness of breath, chest pain or palpitations. He is lying flat comfortably in bed, euvolemic on exam. He is tachycardic on telemetry, HR 100-130s. He has no complaints this morning. DIAGNOSTICS * Echocardiogram revealed EF 40-45%, mild LVH, mild tricuspid regurgitation * Echocardiogram in 2017 revealed EF 55%, mild mitral regurgitation 05/05/2022 Patient seen and examined at bedside, no acute events overnight. BP is stable. 131/64. Continues to be slightly tachycardic HR 90s-130s this morning. 05/07 Patient seen and examined. Patient somewhat lethargic however states he is doing okay. Denies any chest pain or pressure. Metoprolol was increased to 75 mg twice a day yesterday. Heart rate still in the 90s to low 110s and occasionally 130s 140s. Pressures remained somewhat borderline however has been tolerating well. PHYSICAL EXAMINATION Vitals reviewed CONSTITUTIONAL: No apparent distress. HEENT: Head is normocephalic. Neck Supple No JVD. CHEST EXAMINATION: Lungs are clear to auscultation. No chest wall tenderness is noted on palpation or with deep breathing. HEART EXAMINATION: Irregular rate and rhythm. S1, S2 heard. Systolic murmur at a pex, gallops or rub. ABDOMEN: Soft, nontender. Positive bowel sounds. EXTREMITIES: 2+ peripheral pulses, no lower extremity edema and no calf tenderness. NEUROLOGIC EXAMINATION: Patient is awake,alert oriented x 2 ASSESSMENT Paroxysmal atrial fibrillation with RVR, on Eliquis UTI Possible pneumonia Hyperkalemia, improved History of COPD Hypertension PLAN Heart rate still remained elevated. We will increase metoprolol to 75mg 3 times a day Continue anticoagulation with Eliquis Continue cardiac telemetry Rest of management per primary Further recommendations based on clinical course Objective - Vital Signs Vital signs: Vital Signs Temp 97.6 F 05/07/22 03:30 Pulse 103 H 05/07/22 09:16 Resp 19 05/07/22 03:30 BP 145/94 05/07/22 03:30 Pulse Ox 96 05/07/22 09:06 FiO2 21 05/05/22 19:00 Intake & Output 05/06/22 05/07/22 05/07/22 18:59 06:59 18:59 Intake Total 720 Output Total 420 Balance 720 -420 Intake: Oral 720 Output: Urine 420 Other: Voiding Method External Catheter Indwelling Catheter # Voids 0 - Labs CBC & Chem 7: 05/07/22 07:23 05/07/22 07:23 Labs: Abnormal Lab Results - Last 24 Hours (Table) 05/07/22 05/07/22 Range/Units 07:23 07:23 WBC 12.7 H (3.8-10.6) k/uL RBC 3.49 L (4.30-5.90) m/uL Hgb 11.8 L (13.0-17.5) gm/dL Hct 34.8 L (39.0-53.0) % Neutrophils # 11.1 H (1.3-7.7) k/uL Chloride 118 H (98-107) mmol/L Carbon Dioxide 20 L (22-30) mmol/L BUN 24 H (9-20) mg/dL Creatinine 0.59 L (0.66-1.25) mg/dL Calcium 8.3 L (8.4-10.2) mg/dL Total Protein 4.7 L (6.3-8.2) g/dL Albumin 2.4 L (3.5-5.0) g/dL Microbiology - Last 24 Hours (Table) 04/30/22 18:35 Blood Culture - Final Blood No Growth after 144 hours 04/30/22 18:20 Blood Culture - Final Blood No Growth after 144 hours
[2022-05-07] MEDS: METOPROLOL TARTRATE 25 MG TAB PO SCH ×2 (12:32→20:18)
[2022-05-08] MEDS: TAMSULOSIN 0.4 MG CAP.ER.24H PO SCH (08:05)
[2022-05-08] MEDS: METOPROLOL TARTRATE 25 MG TAB PO SCH (08:05)
[2022-05-08] MEDS: APIXABAN 5 MG TAB PO SCH (08:06)
[2022-05-08] MEDS: FOLIC ACID 1 MG TAB PO SCH (08:06)
[2022-05-08] MEDS: PANTOPRAZOLE 40 MG TABLET PO SCH (08:06)
[2022-05-08] MEDS: MULTIVITAMINS, THERA 1 EACH TAB PO SCH (08:06)
[2022-05-08] MEDS: CHOLECALCIFEROL 125 MCG (5000 IU) TABLET PO SCH (08:06)
[2022-05-08] MEDS: SENNOSIDES 8.6 MG TAB PO SCH (08:06)
[2022-05-08] MEDS: THIAMINE 100 MG TAB PO SCH (08:06)
[2022-05-08] MEDS: ASPIRIN 81 MG PO SCH (08:06)
[2022-05-08] MEDS: dexAMETHasone 2 MG TAB PO SCH (08:06)
[2022-05-08] MEDS: IPRATROPIUM-ALBUTEROL 3 ML NEB INHALATION SCH ×2 (08:34→12:14)
[2022-05-08] MEDS: BUDESONIDE 0.5 MG/2 ML NEBU INHALATION SCH (08:34)
[2022-05-08] MEDS: SODIUM CHLORIDE 0.9% 1,000 ML IV SCH (08:51)
--- NOTE | 2022-05-08 08:51 | DS ---
DISCHARGE SUMMARY DISCHARGE MEDICATIONS: 1. DuoNeb updrafts q.i.d. 2. Flomax 0.4 mg daily at night. 3. Hexadrol 2 mg b.i.d. for 15 days. 4. Lopressor 75 mg b.i.d. 5. Protonix 40 mg daily. 6. Aspirin 81 mg daily. 7. Zofran 4 mg q.8 hours p.r.n. for nausea. 8. Killen 5/325 q.8 hours p.r.n. for pain. 9. Senokot 8.6 mg b.i.d. 10.Eliquis 5 mg b.i.d. 11.Thiamine 100 mg daily. 12.Vitamin D3 5000 international units daily. 13.Pulmicort 0.5 mg b.i.d. 14.Multivitamin daily. 15.Folic acid 1 mg daily. CONDITION: Stable. PROGNOSIS: Guarded. Ambulate as tolerated. DISCHARGE DIAGNOSES: 1. Generalized weakness. 2. Hyperkalemia. 3. Aspiration pneumonia. 4. Supraventricular tachycardia versus atrial fibrillation with RVR. HOSPITAL COURSE: The patient came in with weakness, aspiration pneumonia, hyperkalemia, dehydration, prerenal azotemia, went into atrial fibrillation with RVR versus SVT, seen by Cardiology. Medications adjusted. Eliquis for blood thinner. The patient was treated, improved. Seen by Pulmonology. Cardiology cleared for discharge. Dr. Walden see him up in the halfway. He also has [id number] dementia, but he can talk and is pleasantly confused, but otherwise he is doing good. He is status post COVID. He has post-COVID syndrome also, but the updraft treatments and PT/OT will be needed. Please see further orders. MMODL / IJN: [id number] /
--- NOTE | 2022-05-08 09:50 | P.PN ---
Subjective Progress Note Date: 05/08/22 HISTORY OF PRESENT ILLNESS: This is a 77 year old male with a past medical history of paroxysmal atrial fibrillation on Eliquis, chronic nicotine dependence, COPD, hypertension, recent repair of his femur at [facility]. Patient is a poor historian, unclear if he follows with a vineyard worker. Patient is at rehab currently at [facility]. We are consulted for A fib with RVR. Patient presented to the Hospital on 04/30/2022 from [facility] for suicidal ideation. Apparently the ECF patient was frustrated at the ECF and talked about killing himself. He also is being treated for UTI and possible pneumonia. He was initially on a medicine unit but went into A fib with RVR with HR 160s Yesterday. Primary team was notified and new orders for one time po 60mg of cardizem and patient was transferred to 3S/cardiac step down unit. He is seen and examined at bedside, no acute distress. Denies any shortness of breath, chest pain or palpitations. He is lying flat comfortably in bed, euvolemic on exam. He is tachycardic on telemetry, HR 100-130s. He has no complaints this morning. DIAGNOSTICS * Echocardiogram revealed EF 40-45%, mild LVH, mild tricuspid regurgitation * Echocardiogram in 2017 revealed EF 55%, mild mitral regurgitation 05/05/2022 Patient seen and examined at bedside, no acute events overnight. BP is stable. 131/64. Continues to be slightly tachycardic HR 90s-130s this morning. 05/07 Patient seen and examined. Patient somewhat lethargic however states he is doing okay. Denies any chest pain or pressure. Metoprolol was increased to 75 mg twice a day yesterday. Heart rate still in the 90s to low 110s and occasionally 130s 140s. Pressures remained somewhat borderline however has been tolerating well. 05/08/2022 Patient examined this point the bedside. Patient states he is tired and did not sleep well overnight. He denies any chest pain or pressure. Denies shortness of breath. Patient's heart rates have improved and are now ranging between 8090. He denies any palpitations. Blood pressure is stable. PHYSICAL EXAM: VITAL SIGNS: Reviewed. GENERAL: Well-developed in no acute distress. NECK: Supple. No JVD or thyromegaly LUNGS: Respirations even and unlabored. Lungs essentially clear to auscultation bilaterally. HEART: Irregular rate and rhythm. S1 and S2 heard. + systolic murmur EXTREMITIES: Normal range of motion. No clubbing or cyanosis. Peripheral pulses intact. No lower extremity edema ASSESSMENT: Paroxysmal atrial fibrillation with RVR, on Eliquis UTI Possible pneumonia Hyperkalemia, improved History of COPD Hypertension PLAN: Continue current cardiac medications Patient is stable for discharge today from a cardiac standpoint We will sign off. Please reconsult if needed. Nurse practitioner note has been reviewed by physician. Signing provider agrees with the documented findings, assessment, and plan of care. Objective - Vital Signs Vital signs: Vital Signs Temp 97.3 F L 05/08/22 00:51 Pulse 90 05/08/22 00:51 Resp 20 05/08/22 00:51 BP 149/98 05/08/22 00:51 Pulse Ox 90 L 05/08/22 00:51 FiO2 21 05/05/22 19:00 Intake & Output 05/07/22 05/08/22 05/08/22 18:59 06:59 18:59 Intake Total 660 Output Total 450 500 Balance 210 -500 Intake: Oral 660 Output: Urine 450 500 Other: Voiding Method Indwelling Catheter Indwelling Catheter # Bowel Movements 2 - Labs CBC & Chem 7: 05/07/22 07:23 05/07/22 07:23
[2022-05-08 10:27] VITALS: BP 149/93; PULSE 111; RESP 18; TEMP 97.9
== END 2022-05-08 14:41 | DRG 177 ==
LOC: EC 15:01 → 4SSUR 17:40 → 3SCARD 05-04 17:50 → 4SSUR 05-08 00:50
PROVIDERS: ADMIT Family Medicine; ATTEND Family Medicine
DX: J69.0 Pneumonitis due to inhalation of food and vomit (principal); G93.41 Metabolic encephalopathy; B37.0 Candidal stomatitis; F03.B3 Unspecified dementia, moderate, with mood disturbance; R45.851 Suicidal ideations; I47.1 Supraventricular tachycardia; N39.0 Urinary tract infection, site not specified; G62.1 Alcoholic polyneuropathy; F10.10 Alcohol abuse, uncomplicated; J44.9 Chronic obstructive pulmonary disease, unspecified; I10 Essential (primary) hypertension; I08.1 Rheumatic disorders of both mitral and tricuspid valves; I48.0 Paroxysmal atrial fibrillation; U09.9 Post COVID-19 condition, unspecified; T50.916A Underdosing of multiple unspecified drugs, medicaments and biological substances, initial encounter; Z20.822 Contact with and (suspected) exposure to COVID-19; E87.5 Hyperkalemia; K21.9 Gastro-esophageal reflux disease without esophagitis; M15.0 Primary generalized (osteo)arthritis; R53.81 Other malaise; R26.9 Unspecified abnormalities of gait and mobility; Z28.310 Unvaccinated for COVID-19; Z91.14 Patient's other noncompliance with medication regimen; Z79.82 Long term (current) use of aspirin; Z79.51 Long term (current) use of inhaled steroids; Z79.01 Long term (current) use of anticoagulants; Z87.891 Personal history of nicotine dependence; Z86.73 Personal history of transient ischemic attack (TIA), and cerebral infarction without residual deficits; Z79.899 Other long term (current) drug therapy
CPT/HCPCS: 36415; 71046; 80048; 80053; 81001; 83605; 83880; 84145; 84443; 85025; 87040; 87070; 87086; 87205; 87635; 93005; 93306; 94640; 94760; 96361; 96365; 96368; 99285